=== PATIENT | female | born 1960 | race Caucasian/White ===

== ENCOUNTER 2019-10-17 19:43 | Emergency (ER) | payer OTHER, SELFPAY ==
[2019-10-17 19:51] VITALS: BP 144/74; PULSE 70; RESP 14; TEMP 36.4; O2SAT 94
--- NOTE | 2019-10-17 20:50 | ED.GENADULT ---
HPI - General Adult General Chief complaint: Upper Respiratory Infection Stated complaint: chest congestion Time Seen by Provider: 10/17/19 20:50 Source: patient and RN notes reviewed Mode of arrival: ambulatory Limitations: no limitations History of Present Illness HPI narrative: 59-year-old female presents with complains of tightness in lungs when taking a deep breath, wheezing, and dry cough for the past 5 days. No treatment. Joy says she has been housing cleaning and painting and symptoms has worsened over the last 48 hours. Constant dry cough. Rhinorrhea and nasal congestion. Denies sore throat. No high fevers, drooling, neck or throat swelling. No chest pain, or shortness of breath. Exacerbation factors consist of smoke exposure. Denies nausea, vomiting, and abdominal pain. Tolerating liquids well. Remains active. Some parts of this dictation were generated by voice recognition software and may contain typographical and/or grammatical inaccuracies. Related Data Home Medications Medication Instructions Recorded Confirmed amlodipine 10 mg PO DAILY 10/17/19 10/17/19 diclofenac sodium 75 mg PO DAILY 10/17/19 10/17/19 famotidine 20 mg PO DAILY 10/17/19 10/17/19 lisinopril-hydrochlorothiazide 1 tablet PO DAILY 10/17/19 10/17/19 omeprazole 20 mg PO DAILY 10/17/19 10/17/19 Allergies Allergy/AdvReac Type Severity Reaction Status Date / Time erythromycin base Allergy Severe NAUSEA AND Verified 03/23/18 19:28 VOMITING Quinolones Allergy Mild HIVES,SWELLING Verified 03/23/18 19:28 TO EARS WITH ITCHING Penicillins Allergy Unknown Verified 03/23/18 19:28 MOXIFLOXACIN HCL Allergy Severe HIVES Uncoded 03/23/18 19:28 Review of Systems Review of Systems: Narrative: CONSTITUTIONAL: Denies fever, chills, sweats. EYES: Denies visual changes, redness, discharge. ENT: Complains of rhinorrhea, congestion. Denies sore throat, otalgia. CARDIOVASCULAR: Denies chest pain, palpitations, edema. RESPIRATORY: Denies dyspnea. Complains of dry cough, wheezing. GASTROINTESTINAL: Denies abdominal pain, nausea, vomiting, diarrhea. GENITOURINARY: Denies dysuria, hematuria, abnormal discharge. SKIN: Denies rash or itching. MUSCULOSKELETAL: Denies acute back pain, joint pain, or myalgia. NEUROLOGIC: Denies numbness or focal weakness. PSYCHIATRIC: Denies anxiety or depression. All systems reviewed & are unremarkable except as noted in HPI and below. [facility] Past Medical History Medical History (Updated 10/18/19 @ 00:00 by Abrahan Abarca) COPD (chronic obstructive pulmonary disease) with emphysema Hypertension Surgical History Surgical History (Updated 10/17/19 @ 20:56 by ERNESTO Gonzalez) History of carpal tunnel surgery Bilateral wrist History of hysterectomy Hx of appendectomy Family History Family History (Updated 10/17/19 @ 20:57 by ERNESTO Gonzalez) Mother Hypertension Diabetes mellitus Father Diabetes mellitus Hypertension Social History Social History (Updated 10/17/19 @ 20:57 by ERNESTO Gonzalez) Smoking status: Current every day smoker Second hand tobacco smoke exposure: Yes Alcohol intake: never Substance use: never Living arrangements: with family Gender identity (if verbalized by the patient): Female Comments At time of signature, agree with nurse past medical, surgical, social, and family history. There is no relevant family history pertinent to the presenting complaint. Exam Narrative: Exam Narrative: GENERAL: This is a well-nourished, well-developed patient, in no apparent distress. Talks in full sentences and ambulates with steady gait without dyspnea. HEAD: normocephalic, atraumatic. EYES: PERRL. Sclera clear/white. Vision is grossly intact. EARS: External ears normal, auditory canals clear and without drainage, TMs normal without perforation. Hearing grossly intact. NOSE: External nose normal with no obv
== END 2019-10-17 21:04 | disposition home or self-care (01) ==
PROVIDERS: Emergency Provider Nurse Practitioner Family
DX: R09.89 Other specified symptoms and signs involving the circulatory and respiratory systems (principal); J40 Bronchitis, not specified as acute or chronic; F17.200 Nicotine dependence, unspecified, uncomplicated; J44.9 Chronic obstructive pulmonary disease, unspecified; I10 Essential (primary) hypertension
CPT/HCPCS: 99213; G0463

== ENCOUNTER 2025-07-17 10:52 | Emergency (ER) | payer OTHER, SELFPAY ==
[2025-07-17 11:00] VITALS: BP 139/60; PULSE 52; RESP 18; TEMP 36.3; O2SAT 96
--- NOTE | 2025-07-17 11:04 | ED.DENTAL ---
HPI - Dental/Oral General Chief complaint: Dental/Oral Stated complaint: Tooth Pain/Facial Swelling Time Seen by Provider: 07/17/25 11:05 Source: patient, RN notes reviewed and old records reviewed Mode of arrival: ambulatory Limitations: no limitations History of Present Illness HPI Narrative: 64 year old female presents to [facility] with complaints right upper dental pain which is radiating to her right ear that started yesterday with facial swelling to the right side starting at midnight. Patient reports she took 2 left over doses of clindamycin that she had and she also has tramadol which she has taken for the pain. Patient reports no difficulty with her breathing or with her swallowing. Patient has no swelling under the jaw pr any trismus or any Pk angina. MD Complaint: tooth pain Location: Tooth # (2) Onset (ago): day(s) (since yesterday) Duration: constant Severity scale (1-10): 5 Treatment prior to arrival: oral analgesic and other (2 left over doses of Clindamycin) Related Data Home Medications ?Medication ?Instructions ?Recorded ?Confirmed ?Last Taken ?Type amlodipine 10 mg tablet 10 mg PO DAILY 10/17/19 10/17/19 Unknown History diclofenac sodium 75 mg 75 mg PO DAILY 10/17/19 10/17/19 Unknown History tablet,delayed release omeprazole 20 mg capsule,delayed 20 mg PO DAILY 10/17/19 10/17/19 Unknown History release bupropion HCl 150 mg tablet,12 hr mg PO 07/17/25 Unknown History sustained-release gabapentin 100 mg capsule mg 07/17/25 Unknown History gabapentin 300 mg capsule mg 07/17/25 Unknown History metoprolol succinate 25 mg mg PO 07/17/25 Unknown History tablet,extended release 24 hr tramadol 50 mg tablet mg 07/17/25 Unknown History Allergies Allergy/AdvReac Type Severity Reaction Status Date / Time erythromycin base Allergy Severe NAUSEA AND Verified 07/17/25 11:04 VOMITING Quinolones Allergy Mild HIVES,SWELLING Verified 07/17/25 11:04 TO EARS WITH ITCHING Penicillins Allergy Unknown Unknown Verified 07/17/25 11:04 MOXIFLOXACIN HCL Allergy Severe HIVES Uncoded 03/23/18 19:28 Review of Systems Review of Systems: CONSTITUTIONAL: Denies fever, chills, or sweats. ENT: Denies rhinorrhea, congestion, sore throat, or otalgia. Reports dental pain to right upper posterior molar which is broken off with facial swelling to cheek with some radiation of pain to her ear with no trismus noted. CARDIOVASCULAR: Denies chest pain, palpitations, or edema. RESPIRATORY: Denies cough or dyspnea. SKIN: Denies rash or itching. MUSCULOSKELETAL: Denies myalgia. NEUROLOGIC: Denies headache All systems reviewed & are unremarkable except as noted in HPI and below PMFSH Past Medical History Medical History Anxiety and depression COPD (chronic obstructive pulmonary disease) with emphysema Hypertension Surgical History Surgical History History of repair of right rotator cuff H/O inguinal hernia repair History of total left hip arthroplasty Hx of appendectomy History of hysterectomy History of carpal tunnel surgery Bilateral wrist Family History Family History Mother Hypertension Diabetes mellitus Father Diabetes mellitus Hypertension Social History Social History Smoking status: Former smoker Second hand tobacco smoke exposure: Yes Additional smoking assessment comments: quit 5 years ago Alcohol intake: never Substance use: never Living arrangements: with family Gender identity (if verbalized by the patient): Female Comments At time of signature, agree with nursing past medical, surgical, social and family history. There is no relevant family history pertinent to the presenting complaint Exam Narrative: GENERAL: Well-appearing, well-nourished, and in some acute distress. HEAD: Normocephalic, atraumatic. EYES: PERRLA and EOMI. ENT: Nares clear, no rhinorrhea or epistaxis. Mucous membranes moist. Missing teeth, broken teeth, caries noted with swelling to right side of face with abscess noted to most posterior upper right molar which is broken off with redness swelling of gum, no trismus or any Pk angina. No swelling noted along jaw or under jaw. NECK: Supple.no lymphadenopathy CHEST: Clear to auscultation. No respiratory distress.SAO2 96% on room air HEART: Regular rate and rhythm. No murmur heard. Normal peripheral pulses. SKIN: Warm, dry, no rash. NEURO: No focal deficits. Alert and oriented x3. Course Course Level of Care: Express Care Visit Vital Signs Vital signs: Vital Signs Temperature 36.3 C L 07/17/25 11:00 Pulse Rate 52 L 07/17/25 11:00 Respiratory Rate 18 07/17/25 11:00 Blood Pressure 139/60 07/17/25 11:00 Pulse Oximetry 96 07/17/25 11:00 Oxygen Delivery Room Air 07/17/25 11:00 Temperature 36.3 C L 07/17/25 11:00 Pulse Rate 52 L 07/17/25 11:00 Respiratory Rate 18 07/17/25 11:00 Blood Pressure 139/60 07/17/25 11:00 Pulse Oximetry 96 07/17/25 11:00 Oxygen Delivery Room Air 07/17/25 11:00 reviewed MDM MDM Narrative Medical decision making narrative: 64 year old female with dental pain and facial swelling since yesterday with dental abscess noted to right upper gum where tooth is broken off at gum line. Anticipatory guidance and reasons to seek care in ED reviewed with patient with understanding voiced. Patient instructed if increased swelling of face that goes under jaw or any difficulty with breathing or swallowing go to ED immediately. Differential Diagnosis Differential Diagnosis: Differential diagnostic considerations for dental issues include gingival abscess, dental caries, toothache, dental abscess, fracture of tooth, aphthous ulcer, TMJ. Critical Care Time Critical Care Time Critical Care Time: No Discharge Plan Discharge Clinical Impression: Dental abscess, Right facial swelling Patient Disposition: Home Condition: Stable Instructions: Antibiotic Form, Dental Abscess (ED), Toothache (ED) Additional Instructions: Avoid temperature extremes May apply heat or ice to the face Gentle brushing and flossing Antibiotic as directed Tylenol for lesser pain Use ibuprofen regularly may use your Rx of Tramadol also for acute pain Follow-up with the dentist as soon as possible--see the list provided If your symptoms persist, change or worsen significantly before you can contact your personal physician then please, without delay, go to the emergency department for further evaluation. Follow-up with PCP in 7-10 days or sooner if needed Follow up with PCP soon in regards to your blood pressure which is elevated above threshold for referral. Blood pressure above 120/80 may indicate pre-hypertension. 139/60 Patient Language: Turkmen Prescriptions: New clindamycin HCl [Cleocin HCl] 300 mg capsule 300 mg PO Q8H Qty: 30 0RF chlorhexidine gluconate [Peridex] 0.12 % mouthwash 15 ml mucous membrane BID Qty: 473 0RF Rx Instructions: mouthwash No Action amlodipine 10 mg tablet 10 mg PO DAILY omeprazole 20 mg capsule,delayed release(DR/EC) 20 mg PO DAILY diclofenac sodium 75 mg tablet,delayed release (DR/EC) 75 mg PO DAILY (DME) inhalational spacing device Spacer See Rx Instructions .ROUTE .MEDSUPPLY Qty: 1 0RF Rx Instructions: As directed albuterol sulfate [ProAir HFA] 90 mcg/actuation HFA aerosol inhaler 2 puff INHALATION Q4H Qty: 18 0RF bupropion HCl 150 mg tablet sustained-release 12 hr PO tramadol 50 mg tablet gabapentin 300 mg capsule gabapentin 100 mg capsule metoprolol succinate 25 mg tablet extended release 24 hr PO Follow-up/Referrals: Key,Peyman Quesada MD [Primary Care Provider, Unknown] Stand Alone Forms: Work/School Release IP Time of Disposition: 11:19 Quality [place] Coma Scale Eyes: Open Verbal: Oriented and Alert Motor: Follows Commands Yaya Coma Total Score: 15
--- OUTSIDE RECORDS SUMMARY | 2025-07-17 13:07 | XMS_ITS | Encounter Summary ---
Author Organization [facility] Address [address] [place] [address] Phone Care Team Providers Care Lpc Name Role Phone Diego Crain MD Unavailable Ida Mejia [facility] Unavailable [phone] Peyman Mackey MD Primary Care Provider [phone] Herrera Payne MD Unavailable Rosendo Krishnamurthy MD Unavailable Reason for Visit * Reason Comments Medication Refill Encounter Details Date Type Department Care Team (Late st Contact Info) Description 10/17/2023 [facility]ill [facility] [address] [place] [address] Peyman Mackey MD [address] [address] Medication Refill Social History Tobacco Use Types Packs/Day Years Used Date Smoking Tobacco: Former Cigarettes 0.5 41.2 0 03/10/1979 - 05/14/2020 Smokeless Tobacco: Never Comments:Cigarettes..need to quit. I quit on May 2020 Alcohol Use Standard Drinks/Week Comments Not Currently 0 (1 standard drink = 0.6 oz pur e alcohol) [facility] Utilities Answer Date Recorded In the past 12 months has e electric, gas, oil, or water company threatened to shut off services in your home? No 09/27/2023 Social Connection and Isolation Panel Answer Date Recorded In a typical week, how many times do you talk on the phone with family, friends, or neighbors? More than three times a week 09/27/2023 How often do you get togethe r with friends or relatives? More than three times a week 09/27/2023 How often do you attend chur ch or muslim services? 1 to 4 times per year 09/27/2023 Do you belong to any clubs o r organizations such as mosque groups, unions, fraternal or athletic groups, or school groups? No 09/27/2023 How often do you attend meet ings of the clubs or organizations you belong to? Never 09/27/2023 Are you , , di vorced, , never , or living with a partner? 09/27/2023 AUDIT-C Answer Date Recorded Q1: How often do you have a drink containing alcohol? Never 09/27/2023 Q2: How many drinks containi ng alcohol do you have on a typical day when you are drinking? Patient does not drink Q3: How often do you have si x or more drinks on one occasion? Never 09/27/2023 Overall Financial Resource Strain (CARDIA) Answe r Date Recorded How hard is it for you to pa y for the very basics like food, housing, medical care, and heating? Not very hard 09/27/2023 PHQ-2 Answer Date Recorded Total Score - Questions 1-9 16 04/0 12/2022 [facility] - Occupational Stress Questionnaire Answer Date Recorded Do you feel stress - tense, restless, nervous, or anxious, or unable to sleep at night because your mind is troubled all the time - these days? To some extent 09/27/2023 Exercise Vital Sign Answer Date Recorde d On average, how many days pe r week do you engage in moderate to strenuous exercise (like a brisk walk)? 0 days 09/27/2023 On average, how many minutes do you engage in exercise at this level? 0 min 09/27/2023 Hunger Vital Sign Answer Date Recorded Within the past 12 months, y ou worried that your food would run out before you got the money to buy more. Never true 09/27/19 24 Within the past 12 months, t he food you bought just didn't last and you didn't have money to get more. Never true 09/27/2023 PRAPARE - Transportation Answer Date Re corded In the past 12 months, has l ack of transportation kept you from medical appointments or from getting medications? No 09/03 In the past 12 months, has l ack of transportation kept you from meetings, work, or from getting things needed for daily living? No 09/27/2023 Housing Stability Vital Sign Answer Allan e Recorded In the last 12 months, was t here a time when you were not able to pay the mortgage or rent on time? No 09/27/2023 In the last 12 months, how many places have you lived? 1 09/27/2023 In the last 12 months, was t here a time when you did not have a steady place to sleep or slept in a snf (including now)? No 09/27/2023 Education Answer Date Recorded What is the highest level of school you have completed or the highest degree you have received? Some college, no degree 08/27/2020 Sexually Active Control Partners Comments Not Currently Male Comments No Sex and Gender Information Value Date Recorded Sex Assigned at Not on file Legal Sex Female 3:29 PM PUDDLER HELPER Gender Identity Female 06/19/2023 12:12 AM PUDDLER HELPER Sexual Orientation Straight 06/19/2023 12 :12 AM PUDDLER HELPER documented as of this encounter Miscellaneous Notes * Telephone Encounter - Tari Owens RN - 10/18/2023 10:31 AM CDT Medication(s) refilled and signed per [facility] Chronic Medication Refill Standing Order for Pediatricand Adult Patients. Requested Prescriptions Pending Prescriptions Disp Refills amLODIPine (NORVASC) 10 MG Tablet [Pharmacy Med Name: amLODIPine Besylate 10 MG Oral Tablet] 90 Tablet 0 Sig: Take 1 tablet by mouth once daily Calcium-Channel Blockers Protocol Passed - 10/17/2023 11:22 AM Passed - BP on record in the past year Clinician-entered: BP Readings from Last 3 Encounters: 09/30/23 160/84 11/05/22 142/60 10/28/21 126/72 Patient-entered: No data recorded Passed - Visit with relevant provider in past 12 months or upcoming 90 days Recent Visits Date Type Provider Dept 09/30/23 Office Visit Peyman Mackey MD [facility] 11/05/22 Office Visit Peyman Mackey MD [facility] Showing recent visits within past 365 days and meeting all other requirements Future Appointments Date Type Provider Dept 01/10/24 Appointment Peyman Mackey MD [facility] Showing future appointments within next 90 days and meeting all other requirements documented in this encounter Plan of Treatment Upcoming Encounters Date Type Department Care Team (Late st Contact Info) Description 08/06/2025 1:30 PM PUDDLER HELPER [facility] [place] [address] [place] [address] Rosendo Krishnamurthy MD [address] [place] [address] 08/30/2025 1:00 PM PUDDLER HELPER Office Visit [facility] - [facility] - [place] [address] [place] [address] Peyman Mackey MD [address] [place] [address] documented as of this encounter Visit Diagnoses Not on filedocumented in this encounter Additional Health Concerns Assessment Noted Time PHQ-9 Depression Total Score: 16 023 2:01 PM CDT documented as of this encounter Care Teams Lpc Relationship Specialty Start Date End Date Peyman Mackey MD [address] [address] PCP - General Family Medicine 11/02/19 Diego Crain MD Consulting Physician Orthopaedic Sports Medicine 03/10/19 Ida Mejia PAC [address] [place] [address] Nurse Practitioner Orthopaedic Surgery 05/08/19 Herrera Payne MD [address] [address] Consulting Physician Colon and Rectal Surgery 03/24/24 Rosendo Krishnamurthy MD [address] [place] [address] Consulting Physician Pulmonary Disease 04/13/25 documented as of this encounter
--- OUTSIDE RECORDS SUMMARY | 2025-07-17 13:07 | XMS_ITS | Encounter Summary ---
Author Organization [facility] Address [address] [place] [address] Phone Care Team Providers Care Air Transportation Provider Name Role Phone Diego Crain MD Unavailable [phone] Ida Mejia [facility] Unavailable [phone] Peyman Mackey MD Primary Care Provider [phone] Herrera Payne MD Unavailable Rosendo Krishnamurthy MD Unavailable Reason for Visit * Reason Comments Medication Refill Encounter Details Date Type Department Care Team (Late st Contact Info) Description 10/09/2023 [facility]ill [facility] - [facility] [address] [place] [address] Peyman Mackey MD [address] [address] Medication Refill Social History Tobacco Use Types Packs/Day Years Used Date Smoking Tobacco: Former Cigarettes 0.5 41.2 0 03/10/1979 - 05/14/2020 Smokeless Tobacco: Never Comments:Cigarettes..need to quit. I quit on May 2020 Alcohol Use Standard Drinks/Week Comments Not Currently 0 (1 standard drink = 0.6 oz pur e alcohol) [facility] Utilities Answer Date Recorded In the past [...] often do you attend chur ch or mormonism services? 1 to 4 times per year 09/27/2023 Do you belong to any clubs o r organizations such as cheondoism groups, unions, fraternal or athletic groups, or [...] Score - Questions 1-9 16 04/0 12/2022 [facility] - Occupational Stress [...] place to sleep or slept in a intermediate (including now)? No 09/27/2023 Education Answer Date Recorded What is the highest level of school you have completed or the highest degree you have received? Some college, no degree 08/27/2020 Sexually Active Control Partners Comments Not Currently Male Comments No Sex and Gender Information Value Date Recorded Sex Assigned at Not on file Legal Sex Female 3:29 PM DIRECTOR NEWS Gender Identity Female 06/19/2023 12:12 AM DIRECTOR NEWS Sexual Orientation Straight 06/19/2023 12 :12 AM DIRECTOR NEWS documented as of this encounter Miscellaneous Notes * Telephone Encounter - Kerline Ashley RN - 10/09/2023 10:11 AM DIRECTOR NEWS Medication failed the protocol, provider to review and approve the medication order if appropriate. Requested Prescriptions Pending Prescriptions Disp Refills diclofenac (VOLTAREN) 75 MG Tablet Delayed Response [Pharmacy Med Name: Diclofenac Sodium 75 MG Oral Tablet Delayed Release] 180 Tablet 0 Sig: Take 1 tablet by mouth twice daily NSAIDs Protocol Failed - 10/09/2023 8:18 AM Failed - Normal serum creatinine in past 12 months No results found for: CREATININE Failed - AST less than 55 or ALT less than 90 in past 12 months No results found for: SGOTAST No results found for: SGPTALT Failed - HGB greater than 10 or HCT greater than 30 in past 12 months HEMOGLOBIN (HGB) Date Value Ref Range Status 09/12/2021 11.4 (L) 12.0 - 15.8 g/dL Final HEMATOCRIT (HCT) Date Value Ref Range Status 09/12/2021 37.1 36.0 - 47.0 % Final Passed - Visit with relevant provider in past 12 months or upcoming 90 days Recent Visits Date Type Provider Dept 09/30/23 Office Visit Peyman Mackey MD [facility] 11/05/22 Office Visit Peyman Mackey MD [facility] Showing recent visits within past 365 days and meeting all other requirements Future Appointments No visits were found meeting these conditions. Showing future appointments within next 90 days and meeting all other requirements Passed - No matching NSAID med order in past 45 days No matching medication orders between 08/25/2023 10:11 AM and 10/09/2023 10:11 AM buPROPion SR (WELLBUTRIN SR) 150 MG TABLET SR 12 HR [Pharmacy Med Name: buPROPion HCl ER (SR) 150 MG Oral Tablet Extended Release 12 Hour] 180 Tablet 0 Sig: Take 1 tablet by mouth twice daily Bupropion (6 Month Refill Only) Protocol Failed - 10/09/2023 8:18 AM Failed - Has an encounter in the past 6 months with a depression or anxiety visit diagnosis Passed - Visit with relevant provider in past 6 months or upcoming 90 days Recent Visits Date Type Provider Dept 09/30/23 Office Visit Peyman Mackey MD [facility] Showing recent visits within past 182 days and meeting all other requirements Future Appointments No visits were found meeting these conditions. Showing future appointments within next 90 days and meeting all other requirements Passed - Patient has established therapy with Bupropion for at least 6 months CTOR NEWS documented in this encounter Plan of Treatment Upcoming Encounters Date Type Department Care Team (Late st Contact Info) Description 08/06/2025 1:30 PM DIRECTOR NEWS Office Visit [facility] - [facility]ology & [facility] Medicine - [place] [address] [place] [phone] Rosendo Krishnamurthy MD [address] [facility] [place] [address] 08/30/2025 1:00 PM DIRECTOR NEWS Office Visit [facility] [place] [address] Peyman Mackey MD [address] [address] documented as of this encounter Visit Diagnoses Not on filedocumented in this encounter Additional Health Concerns Assessment Noted Time PHQ-9 Depression Total Score: 16 023 2:01 PM CDT documented as of this encounter Care Teams Air Transportation Provider Relationship Specialty Start Date End Date Peyman Mackey MD #[address] [address] PCP - General Family Medicine 11/02/19 Diego Crain MD Consulting Physician Orthopaedic Sports Medicine 03/10/19 Ida Mejia PAC [address] [place] [address] Nurse Practitioner Orthopaedic Surgery 05/08/19 Herrera Payne MD [address] [address] Consulting Physician Colon and Rectal Surgery 03/24/24 Rosendo Krishnamurthy MD [address] [place] [address] Consulting Physician Pulmonary Disease 04/13/25 documented as of this encounter
--- OUTSIDE RECORDS SUMMARY | 2025-07-17 13:07 | XMS_ITS | Encounter Summary ---
Author Organization [facility] Address [address] [place] [address] Phone Care Team Providers Care Review Consultant Name Role Phone Diego Crain MD Unavailable Ida Mejia [facility] Unavailable [phone] Peyman Makcey MD Primary Care Provider [phone] Herrera Payne MD Unavailable Roesndo Krishnamurthy MD Unavailable Reason for Visit * Reason Comments Medication Refill Encounter Details Date Type Department Care Team (Late st Contact Info) Description 10/22/2023 Refill [facility] [address] [place] [address] Peyman Mackey MD [address] [address] Medication Refill Social History Tobacco Use Types Packs/Day Years Used Date Smoking Tobacco: Former Cigarettes 0.5 41.2 0 03/10/1979 - 05/14/2020 Smokeless Tobacco: Never Comments:Cigarettes..need to quit. I quit on May 2020 Alcohol Use Standard Drinks/Week Comments Not Currently 0 (1 standard drink = 0.6 oz pur e alcohol) [facility] Utilities Answer Date Recorded In the [...] often do you attend chur ch or roman catholic services? 1 to 4 times per year 09/27/2023 Do you belong to any clubs o r organizations such as sikh groups, unions, fraternal or athletic groups, or [...] Score - Questions 1-9 16 04/0 12/2022 [facility] ional Health - [...] place to sleep or slept in a senior living (including now)? No 09/27/2023 Education Answer Date Recorded What is the highest level of school you have completed or the highest degree you have received? Some college, no degree 08/27/2020 Sexually Active Control Partners Comments Not Currently Male Comments No Sex and Gender Information Value Date Recorded Sex Assigned at Not on file Legal Sex Female 3:29 PM BRAKE MECHANIC Gender Identity Female 06/19/2023 12:12 AM BRAKE MECHANIC Sexual Orientation Straight 06/19/2023 12 :12 AM BRAKE MECHANIC documented as of this encounter Miscellaneous Notes * Telephone Encounter - Kerline Ashley RN - 10/24/2023 2:29 PM CDT Medication failed the protocol, provider to review and approve the medication order if appropriate. Requested Prescriptions Pending Prescriptions Disp Refills ezetimibe (ZETIA) 10 MG Tablet [Pharmacy Med Name: Ezetimibe 10 MG Oral Tablet] 90 Tablet 0 Sig: Take 1 tablet by mouth once daily Intestinal Cholesterol Absorption Inhibitors Protocol Failed - 10/22/2023 9:24 PM Failed - Lipid panel in past year No results found for: LDL, HDLCHOLESTE, CHOLESTEROL, TRIGLYCRIDES, VLDL, CHDL, HDLNON Passed - Visit with relevant provider in past year or upcoming 90 days Recent Visits Date Type Provider Dept 09/30/23 Office Visit Peyman Mackey MD [facility] 11/05/22 Office Visit Peyman Mackey MD [facility] Showing recent visits within past 365 days and meeting all other requirements Future Appointments Date Type Provider Dept 01/10/24 Appointment Peyman Mackey MD [facility] Showing future appointments within next 90 days and meeting all other requirements documented in this encounter Plan of Treatment Upcoming Encounters Date Type Department Care Team (Late st Contact Info) Description 08/06/2025 1:30 PM BRAKE MECHANIC [facility] - Pulmonology & Sleep Medicine - [place] [address] [place] [address] Rosendo Krishnamurthy MD [address] [place] [address] 08/30/2025 1:00 PM BRAKE MECHANIC Office Visit [facility] - Family Medicine - [place] [address] [place] [address] Peyman Mackey MD #[address] [address] documented as of this encounter Visit Diagnoses Not on filedocumented in this encounter Additional Health Concerns Assessment Noted Time PHQ-9 Depression Total Score: 16 023 2:01 PM CDT documented as of this encounter Care Teams Review Consultant Relationship Specialty Start Date End Date Peyman Mackey MD #[address] [address] PCP - General Family Medicine 11/02/19 Diego Crain MD Consulting Physician Orthopaedic Sports Medicine 03/10/19 Ida Mejia PAC [address] [place] [address] Nurse Practitioner Orthopaedic Surgery 05/08/19 Herrera Payne MD #[address] [address] Consulting Physician Colon and Rectal Surgery 03/24/24 Rosendo Krishnamurthy MD [address] [place] [address] Consulting Physician Pulmonary Disease 04/13/25 documented as of this encounter
--- OUTSIDE RECORDS SUMMARY | 2025-07-17 13:08 | XMS_ITS | Encounter Summary ---
Author Organization [facility] Address [address] [place] [address] Phone Care Team Providers Care Medical Physics Professor Name Role Phone Diego Crain MD Unavailable Ida Mejia [facility] Unavailable [phone] Peyman Mackey MD Primary Care Provider [phone] Herrera Payne MD Unavailable Rosendo Krishnamurthy MD Unavailable Reason for Visit * Reason Comments Medication Refill Encounter Details Date Type Department Care Team (Late st Contact Info) Description 06/27/2023 Refill [facility] [address] [place] [address] Peyman Mackey MD [address] [address] Medication Refill Social History Tobacco Use Types Packs/Day Years Used Date Smoking Tobacco: Former Cigarettes 41.1 0 03/10/1979 - 05/2020 Smokeless Tobacco: Never Alcohol Use Standard Drinks/Week Comments Not Currently 0 (1 standard drink = 0.6 oz pur e alcohol) PHQ-2 Answer Date Recorded Total Score - Questions 1-9 16 043 Education Answer Date Recorded What is the highest level of school you have completed or the highest degree you have received? Some college, no degree 08/27/2020 Sexually Active Control Partners Comments Not Currently Comments No Sex and Gender Information Value Date Recorded Sex Assigned at Not on file Legal Sex Female 3:29 PM FIRER LOCOMOTIVE Gender Identity Female 06/19/2023 12:12 AM FIRER LOCOMOTIVE Sexual Orientation Straight 06/19/2023 12 :12 AM FIRER LOCOMOTIVE documented as of this encounter Miscellaneous Notes * Telephone Encounter - Tari Owens RN - 06/28/2023 11:22 AM CST PDMP 05/27/23 Medication failed the protocol, provider to review and approve the medication order if appropriate. Requested Prescriptions Pending Prescriptions Disp Refills amLODIPine (NORVASC) 10 MG Tablet [Pharmacy Med Name: amLODIPine Besylate 10 MG Oral Tablet] 90 Tablet 0 Sig: Take 1 tablet by mouth once daily Calcium-Channel Blockers Protocol Passed - 06/27/2023 11:03 AM Passed - BP on record in the past year Clinician-entered: BP Readings from Last 3 Encounters: 11/05/22 142/60 10/28/21 126/72 07/29/21 128/68 Patient-entered: No data recorded Passed - Visit with relevant provider in past 12 months or upcoming 90 days Recent Visits Date Type Provider Dept 11/05/22 Office Visit Peyman Mackey MD [facility] 08/19/22 Telemedicine Peyman Mackey MD [facility] 07/15/22 Telemedicine Peyman Mackey MD [facility] Showing recent visits within past 365 days and meeting all other requirements Future Appointments Date Type Provider Dept 07/13/23 Appointment Peyman Mackey MD [facility] Showing future appointments within next 90 days and meeting all other requirements ezetimibe (ZETIA) 10 MG Tablet [Pharmacy Med Name: Ezetimibe 10 MG Oral Tablet] 90 Tablet 0 Sig: Take 1 tablet by mouth once daily Intestinal Cholesterol Absorption Inhibitors Protocol Failed - 06/27/2023 11:03 AM Failed - Lipid panel in past year No results found for: LDL, HDLCHOLESTE, CHOLESTEROL, TRIGLYCRIDES, VLDL, CHDL, HDLNON Passed - Visit with relevant provider in past year or upcoming 90 days Recent Visits Date Type Provider Dept 11/05/22 Office Visit Peyman Mackey MD [facility] 08/19/22 Telemedicine Peyman Mackey MD [facility] 07/15/22 Telemedicine Peyman Mackey MD [facility] Showing recent visits within past 365 days and meeting all other requirements Future Appointments Date Type Provider Dept 07/13/23 Appointment Peyman Mackey MD [facility] Showing future appointments within next 90 days and meeting all other requirements buPROPion SR (WELLBUTRIN SR) 150 MG TABLET SR 12 HR [Pharmacy Med Name: buPROPion HCl ER (SR) 150 MG Oral Tablet Extended Release 12 Hour] 180 Tablet 0 Sig: Take 1 tablet by mouth twice daily Bupropion (6 Month Refill Only) Protocol Failed - 06/27/2023 11:03 AM Failed - Has an encounter in the past 6 months with a depression or anxiety visit diagnosis Passed - Visit with relevant provider in past 6 months or upcoming 90 days Recent Visits No visits were found meeting these conditions. Showing recent visits within past 182 days and meeting all other requirements Future Appointments Date Type Provider Dept 07/13/23 Appointment Peyman Mackey MD [facility] Showing future appointments within next 90 days and meeting all other requirements Passed - Patient has established therapy with Bupropion for at least 6 months gabapentin (NEURONTIN) 100 MG Capsule [Pharmacy Med Name: Gabapentin 100 MG Oral Capsule] 60 Capsule 0 Sig: TAKE 1 CAPSULE BY MOUTH TWICE DAILY NEEDED Not Delegated - Anticonvulsants Excluding Benzodiazepines Protocol Failed - 06/27/2023 11:03 AM Failed - This refill cannot be delegated Passed - Visit with relevant provider in past 12 months or upcoming 90 days Recent Visits Date Type Provider Dept 11/05/22 Office Visit Peyman Mackey MD [facility] 08/19/22 Telemedicine Peyman Mackey MD [facility] 07/15/22 Telemedicine Peyman Mackey MD [facility] Showing recent visits within past 365 days and meeting all other requirements Future Appointments Date Type Provider Dept 07/13/23 Appointment Peyman Mackey MD [facility] Show[facility] future appointments within next 90 days and meeting all other requirements traMADol (ULTRAM) 50 MG Tablet [Pharmacy Med Name: traMADol HCl 50 MG Oral Tablet] 60 Tablet 0 Sig: TAKE 1 TABLET BY MOUTH TWICE DAILY NEEDED FOR MODERATE OR MORE SEVERE PAIN Not Delegated - Opioid Agonists Protocol Failed - 06/27/2023 11:03 AM Failed - This refill cannot be delegated Passed - Visit with relevant provider in past 12 months or upcoming 90 days Recent Visits Date Type Provider Dept 11/05/22 Office Visit Peyman Mackey MD [facility] 08/19/22 Telemedicine Peyman Mackey MD [facility] 07/15/22 Telemedicine Peyman Mackey MD [facility] Showing recent visits within past 365 days and meeting all other requirements Future Appointments Date Type Provider Dept 07/13/23 Appointment Peyman Mackey MD [facility] Showing future appointments within next 90 days and meeting all other requirements R LOCOMOTIVE documented in this encounter Plan of Treatment Upcoming Encounters Date Type Department Care Team (Late st Contact Info) Description 08/06/2025 1:30 PM FIRER LOCOMOTIVE Office Visit [facility] - Pulmonology & Sleep Medicine [facility] [address] [place] [address] Rosendo Krishnamurthy MD [address] [place] [address] 08/30/2025 1:00 PM FIRER LOCOMOTIVE Office Visit [facility] - Family Medicine [facility] #[address] [place] [address] Peyman Mackey MD [address] [address] documented as of this encounter Visit Diagnoses Diagnosis Chronic pain syndrome documented in this encounter Additional Health Concerns Assessment Noted Time PHQ-9 Depression Total Score: 16 023 2:01 PM CDT documented as of this encounter Care Teams Medical Physics Professor Relationship Specialty Start Date End Date Peyman Mackey MD #2 [facility] [address] [place] [address] PCP - General Family Medicine 11/02/19 Diego Crain MD Consulting Physician Orthopaedic Sports Medicine 03/10/19 Ida Mejia PAC [address] [place] [phone] Nurse Practitioner Orthopaedic Surgery 05/08/19 Herrera Payne MD #2 [facility] [address] [place] [address] Consulting Physician Colon and Rectal Surgery 03/24/24 Rosendo Krishnamurthy MD #[address] [place] [phone] Consulting Physician Pulmonary Disease 04/13/25 documented as of this encounter
--- OUTSIDE RECORDS SUMMARY | 2025-07-17 13:08 | XMS_ITS | Clinical Summary ---
Author Organization [facility] Address [address] [place] [address] Phone Care Team Providers Care String Studies Director Name Role Phone Diego Crain MD Unavailable [phone] Ida Mejia PAC Unavailable Peyman Mackey MD Primary Care Provider [phone] Herrera Payne MD Unavailable Rosendo Krishnamurthy MD Unavailable Allergies Active Allergy Reactions Criticality Noted Date Comments Erythromycin Base Unknown 03/10/2019 Meloxicam Hives 03/10/2019 Moxifloxacin Hives 03/10/2019 Penicillins Hives 03/10/2019 Sucralfate Nausea 03/10/2019 Medications albuterol 108 (90 Base) MCG/ACT Aerosol SolutionIndicati ons:COPD with acute exacerbation take 2 Puffs by inhalation every 4 hours as needed for Wheezing. 18 g 1 10/07/19 22 Active Acetaminophen (TYLENOL EXTRA STRENGTH PO) Take by mouth. Active ferrous sulfate 325 (65 Fe) MG Tablet Take 1 Tablet by mouth 2 times daily. 180 Tablet 1 09/28/19 25 Active metoprolol Succinate (TOPROL-XL) 25 MG TABLET SR 24 HR Take 1 Tablet by mouth daily. 90 Tablet 3 04/26/20 Active gabapentin (NEURONTIN) 300 MG Capsule Take 1 Capsule by mouth nightly. 04/26/20 Active gabapentin (NEURONTIN) 100 MG Capsule Take 1 Capsule by mouth every morning. 90 Capsule 3 04/26/20 Active omeprazole (PriLOSEC) 40 MG CAPSULE DELAYED RELEASEIndicatio ns:Gastroesophag eal reflux disease without esophagitis Take 1 capsule by mouth once daily 90 Capsule 1 06/11/20 25 Active traMADol (ULTRAM) 50 MG TabletIndication s:Chronic pain syndrome TAKE 1 TABLET BY MOUTH EVERY 8 HOURS NEEDED FOR MODERATE TO SEVERE PAIN 90 Tablet 06/18/20 Active amLODIPine (NORVASC) 10 MG Tablet Take 1 tablet by mouth once daily 90 Tablet 2 06/25/20 25 Active diclofenac (VOLTAREN) 75 MG Tablet Delayed Response Take 1 tablet by mouth twice daily 180 Tablet 2 06/25/20 Active buPROPion SR (WELLBUTRIN SR) 150 MG TABLET SR 12 HR Take 1 tablet by mouth twice daily 180 Tablet 2 06/25/20 25 Active diclofenac (VOLTAREN) 75 MG Tablet Delayed Response Take 1 tablet by mouth twice daily 180 Tablet 03/25/20 25 025 Discontinued buPROPion SR (WELLBUTRIN SR) 150 MG TABLET SR 12 HR Take 1 tablet by mouth twice daily 180 Tablet 03/25/20 25 025 Discontinued amLODIPine (NORVASC) 10 MG Tablet Take 1 tablet by mouth once daily 90 Tablet 03/29/20 25 025 Discontinued traMADol (ULTRAM) 50 MG TabletIndication s:Chronic pain syndrome TAKE 1 TABLET BY MOUTH EVERY 8 HOURS NEEDED FOR MODERATE TO SEVERE PAIN 90 Tablet 05/19/20 25 025 Discontinued Active Problems Problem Noted Date Diagnosed Date Therapeutic drug monitoring 04/26/2025 Primary hypertension 04/26/2025 Pain of right hip 04/26/2025 Pulmonary hypertension 04/13/2025 B12 deficiency 04/28/2024 Personal history of tobacco use, presenting hazards to health 02/17/2024 Lung nodule seen on imaging study 02/17/2024 Iron deficiency anemia 02/17/2024 Obesity (BMI 30-39.9) 02/17/2024 History of scoliosis 02/17/2024 Positive colorectal cancer screening using Colog uard test 02/10/[address] 09/30/2023 Neuropathy 09/30/2023 Postmenopausal 09/30/2023 Lightheadedness 11/05/2022 Right leg paresthesias 11/05/2022 Noncompliance 11/05/2022 Sore throat 08/19/2022 Tooth infection 07/15/2022 Depression 10/28/2021 Liver lesion 10/28/2021 Dysphagia 10/28/2021 Anemia, normocytic normochromic 07/29/2021 Morbid obesity 07/29/2021 Chronic pain syndrome 07/29/2021 Vitamin D deficiency 04/11/2021 Dysphagia lusoria 04/14/2020 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 Abnormal CXR 03/10/2020 Lung nodule 03/10/2020 Bronchitis 10/30/2019 Tobacco abuse 10/30/2019 Chronic joint pain 10/30/2019 Obesity 03/10/2019 Hypertension, essential 03/10/2019 Gastroesophageal reflux disease 03/10/2019 Chronic obstructive lung disease 03/10/2019 Arthritis 03/10/2019 Anxiety 03/10/2019 Retinal disorder 03/10/2019 Nocturnal leg cramps 03/10/2019 Hyperlipidemia Encounters Date Type Department Care Team Description 07/16/2025 [facility] [address] [place] [address] Rosendo Krishnamurthy MD ADULT TRANS THORACIC ECHO 2D COMPLETE 07/13/2025 12:52 PM GRAIN ELEVATOR OPERATOR - 07/13/2025 11:59 PM GRAIN ELEVATOR OPERATOR [facility] [address] [place] [address] Rosendo Krishnamurthy MD Discharge Disposition: Discharged to home or Selfcare 07/13/2025 Travel 07/03/2025 [facility]phone [facility] [address], [place] [address] [id number] Yoly Concepcion, PT Appointment (Same-day cancel) 07/01/2025 Refill [facility] - [facility] - [place] [address] [place] [address] Peyman Mackey MD Medication Refill 06/26/2025 [facility]phone [facility] [address], [place] [address] [address] Yoly Concepcion, PT Appointment (Same-day cancel) 06/23/20[facility] [place] [address] [place] [address] Peyman Mackey MD Medication Refill 06/22/2025 [facility]phone [facility] [address], [place] [address] [address] Yoly Concepcion, PT Appointment (Same-day cancel) 06/19/2025 [facility]phone [facility] [address], [place] [address] [address] Yoly Concepcion, PT Appointment (Same-day cancel) 06/16/2025 [facility] [place] [address] [place] [address] Peyman Mackey MD Medication Refill 06/12/2025 2:45 PM GRAIN ELEVATOR OPERATOR Physical Therapy [facility] [address], [place] [address] [address] Rachell Gray MD [place]ch[place], Kelsey M, PT Low back pain, unspecified back pain laterality, unspecified chronicity, unspecified whether sciatica present (Primary Dx); Decreased ROM of trunk and back; Weakness of both hips; Quadricep tightness; Bilateral foot pain Discharge Disposition: Discharged to home or Selfcare 06/11/2025 Travel 06/10/2025 [facility] [place] [address] [place] [address] Peyman Mackey MD Medication Refill 05/17/2025 [facility] [place] [address] [place] [address] Peyman Mackey MD Medication Refill 05/17/2025 Telephone [facility] Rehab at [address], [place] [address] [address] Yoly Concepcion M, PT Appointment (Same-day cancel) 05/16/2025 Travel 04/29/2025 Results Follow-Up [facility] [address] [place] [address] Peyman Mackey MD XR HIP 2 VIEWS BILATERAL WITH AP PELVIS 04/27/2025 11:49 AM CDT - 04/27/2025 11:59 PM CDT [facility] 1 [place] [address] Peyman Mackey MD Discharge Disposition: Discharged to home or Selfcare 04/27/2025 11:20 AM CDT - 04/27/2025 11:48 AM CDT Hospital Encounter [facility] Respiratory Therapy 1 [place] [address] Rosendo Krishnamurthy MD Discharge Disposition: Discharged to home or Selfcare 04/26/2025 2:00 PM CDT Office Visit [facility] [address] [place] [address] Peyman Mackey MD Hypertension, essential (Primary Dx); Encounter for screening mammogram for breast cancer; Therapeutic drug monitoring; Pain of right hip; Primary hypertension; Hyperglycemia; Vitamin D deficiency; B12 deficiency; Hyperlipidemia, unspecified hyperlipidemia type; Anemia, normocytic normochromic Discharge Disposition: Discharged to home or Selfcare 04/26/2025 Travel 04/19/2025 8:45 AM CDT Physical Therapy [facility] Rehab at [facility] [address], [place] [address] [address] Provider, Not On File Rachell Gray MD Critchfield, Kelsey M, PT Low back pain, unspecified back pain laterality, unspecified chronicity, unspecified whether sciatica present (Primary Dx); Decreased ROM of trunk and back; Weakness of both hips; Quadricep tightness; Bilateral foot pain Discharge Disposition: Discharged to home or Selfcare 04/19/2025 Plan of Care Documentation [facility] Rehab at [facility] [address], [place] [address] [address] 04/19/2025 Travel from Last 3 Months Immunizations Immunization Administration Dates Next Due Influenza Vaccine,unspecified Formulation 2015 Family History Medical History Relation Name Comments Congestive Heart Failure Father Bill Diabetes Father Bill Controlled by p ills Hypertension Father Bill Breast Cancer Maternal Aunt Tiffany Cancer Maternal Aunt Tiffany Breast Diabetes Maternal Grandfather Aroldo Control led by pills Congestive Heart Failure Maternal Grandmother Anna Hypertension Maternal Grandmother Anna Hers wa s low pressure Rheumatoid Arthritis Maternal Grandmother Anna Cancer Maternal Uncle Royal Rectal Congestive Heart Failure Mother Maira Diabetes Mother Maira Controlled by p ills Hypertension Mother Maira Rheumatoid Arthritis Mother Maira Diabetes Paternal Grandmother Ehrhardt Control led by diet Relation Name Status Comments Father Bill Maternal Aunt Tiffany Maternal Grandfather Aroldo Maternal Grandmother Anna Maternal Uncle Royal Mother Maira Paternal Grandmother Florinda Social History Tobacco Use Types Packs/Day Years Used Date Smoking Tobacco: Former Cigarettes 0.5 41.2 0 03/10/1979 - 05/14/2020 Smokeless Tobacco: Never Tobacco Cessation:Counseling Given: Yes Comments:Cigarettes..need to quit. I quit on May 2020 Alcohol Use Standard Drinks/Week Comments Not Currently 0 (1 standard drink = 0.6 oz pur e alcohol) [facility] Utilities Answer Date Recorded In the past 12 months has e [employer], gas, oil, or water company threatened to [...] often do you attend chur ch or hindu services? 1 to 4 times per year 09/27/2023 Do you belong to any clubs o r organizations such as protestant groups, unions, fraternal or athletic groups, or [...] Date Recorded Total Score - Questions 1-9 0 09/2 11/[address]24 [facility] - Occupational Stress Questionnaire Answer Date Recorded [...] on file Legal Sex Female 3:29 PM GRAIN ELEVATOR OPERATOR Gender Identity Female 06/19/2023 12:12 AM GRAIN ELEVATOR OPERATOR Sexual Orientation Straight 06/19/2023 12 :12 AM GRAIN ELEVATOR OPERATOR Last Filed Vital Signs Vital Sign Reading Time Taken Comments Blood Pressure 130/90 04/26/2025 1:42 PM CDT Pulse 65 04/26/2025 1:42 PM CDT Temperature 36.2 C (97.1 F) 04/26/2025 1:42 PM CDT Respiratory Rate 20 04/13/2025 11:06 AM CDT Oxygen Saturation 95% 04/26/2025 1:42 PM CDT Inhaled Oxygen Concentration - - Weight 97.5 kg (215 lb) 04/26/2025 1:42 PM CDT Height 162.6 cm (5' 4) 04/26/2025 1:42 PM CDT Body Mass Index 36.9 04/26/2025 1:42 PM CDT Plan of Treatment Upcoming Encounters Date Type Department Care Team (Late st Contact Info) Description 08/06/2025 1:30 PM GRAIN ELEVATOR OPERATOR Office Visit [facility] - Pulmonology & Sleep Medicine - [place] [address] [place] [address] Rosendo Krishnamurthy MD [address] [place] [address] 08/30/2025 1:00 PM GRAIN ELEVATOR OPERATOR Office Visit [facility] - Family Medicine - [place] [address] [place] [address] Peyman Mackey MD [address] [address] Health Maintenance Due Date Last Done Comments Hepatitis C Virus (HCV) Screening 1960 TdaP Immunization 1960 Pneumococcal Immunization (50+ years) (1 of 2 - PCV) 1980 Immunochemical Fecal Occult Blood 2006 Respiratory Syncytial Virus (RSV) Immunization (Adult) (1 - Risk 50-74 years 1-dose series) 2011 Zoster Immunization (1 of 2) 2011 Colonoscopy 04/20/2022 04/20/2012, 04/20/2012 Mammogram 01/19/2025 01/20/2024, 04/11/2021 Influenza Immunization (#1) 2025 06/15/2016 SARS-COV-2 Immunization ( season) 2025 Lung Cancer Screening 01/30/2026 01/30/2025 , 01/20/2024, 03/01/2023, Additional history exists Cologuard 02/05/2027 02/06/2024 Colorectal Cancer Screening 02/05/2027 Hepatitis B Immunization Aged Out No longer eligible based on patient's age to complete this topic Human Papillomavirus (HPV) Immunization (No Doses Required) Completed Meningococcal Immunization (ACWY) Aged Out No longer eligible based on patient's age to complete this topic Rotavirus Immunization Aged Out No lo nger eligible based on patient's age to complete this topic Procedures Procedure Name Priority Date/Time Associated Diagnosis Comments ADULT TRANS THORACIC ECHO 2D COMPLETE Routine 07/13/2025 1:51 PM GRAIN ELEVATOR OPERATOR Pulmonary hypertension XR HIP 2 VIEWS BILATERAL WITH AP PELVIS Routine 04/27/2025 12:05 PM CDT Pain of right hip COMPLETE PFT W + W/O BRONCHODILATOR Routine 04/27/2025 11:35 AM CDT Other emphysema (HCC) URINE DRUG SCREEN Routine 04/26/[address] CHEST SCREENING WO Routine 01/30/2025 6:10 PM CDT Personal history of tobacco use, presenting hazards to health COLOGUARD 02/06/2024 12:00 AM CDT DEL SCREENING BILATERAL DIGITAL W CAD W FLORINDA Routine 01/20/2024 12:06 PM CDT Encounter for screening mammogram for breast cancer HM COLONOSCOPY Routine 04/20/2012 from Last 3 Months or Most Recently Relevant to Health Maintenance Results * ADULT TRANS THORACIC ECHO 2D COMPLETE (07/13/2025 1:51 PM GRAIN ELEVATOR OPERATOR) LV EF(estimated)% 63 RESULTING AGENCY Anatomical Region Laterality Modality CARDIO N/A Ultrasound Narrative 07/13/2025 4:10 PM GRAIN ELEVATOR OPERATOR Transthoracic Echocardiography Report (TTE) Patient name KATIE Manjarrez Nayely 1960 Patient ID (UPI) [id number] Indications: Pulmonary hypertension. Study Date07/13/2025 Technical quality: Adequate Type of Study: TTE procedure: Adult Trans Thoracic Echo 2D Complete. Priority:RoutineHR: 58 bpmBP: 132/84 mmHg Conclusions Summary -Normal right ventricular cavity size and normal systolic function. - Normal LV size, diastolic and systolic function. LVEF estimated 60 to 65%. -No hemodynamically significant valvular abnormalities. Findings Mitral Valve The mitral valve is normal. No evidence of mitral stenosis. No significant mitral regurgitation. Aortic Valve The aortic valve is trileaflet with normal leaflet excursion. There is no evidence of aortic valve stenosis. There is no significant aortic valve insufficiency. Tricuspid Valve The tricuspid valve is normal. There is no evidence of tricuspid stenosis. There is no significant tricuspid regurgitation. There is no evidence of pulmonary hypertension. Pulmonic Valve Not well visualized, no evidence by Doppler interrogation for significant stenosis or regurgitation. Left Atrium The left atrium size is normal. Left Ventricle - Normal LV size, diastolic and systolic function. LVEF estimated 60 to 65%. Right Atrium The right atrium size is normal. Right Ventricle Normal right ventricular cavity size and normal systolic function. Pericardial Effusion The pericardium is normal. There is no pericardial effusion visualized. Miscellaneous Aortic root and proximal ascending aorta are normal in size. Atrial septum appears intact. IVC is normal in size and respiratory response. Aortic arch appears normal. Structures Left Ventricle Global Longitudinal Strain:-17.6 Demographics Age 64 Gender Female Race Height 64.02 in. Weight 215 lbs. BMI (BSA) 36.89 kg/m^2 (2.02 m^2) Associate Buyer Lester Browning Interpreting Patrick NUGENT Physician Jack Physician Procedure Note Jack Nguyen MD - 07/13/2025 Transthoracic Echocardiography Report (TTE) Patient name KATIE BUSTOS Loki Adler 1960 Patient ID ([facility]) [id number] Indications: Pulmonary hypertension. Study Date07/13/2025 Technical quality: Adequate Type of Study: TTE procedure: Adult Trans Thoracic Echo 2D Complete. Priority:RoutineHR: 58 bpmBP: 132/84 mmHg Conclusions Summary -Normal right ventricular cavity size and normal systolic function. - Normal LV size, diastolic and systolic function. LVEF estimated 60 to 65%. -No hemodynamically significant valvular abnormalities. Findings Mitral Valve The mitral valve is normal. No evidence of mitral stenosis. No significant mitral regurgitation. Aortic Valve The aortic valve is trileaflet with normal leaflet excursion. There is no evidence of aortic valve stenosis. There is no significant aortic valve insufficiency. Tricuspid Valve The tricuspid valve is normal. There is no evidence of tricuspid stenosis. There is no significant tricuspid regurgitation. There is no evidence of pulmonary hypertension. Pulmonic Valve Not well visualized, no evidence by Doppler interrogation for significant stenosis or regurgitation. Left Atrium The left atrium size is normal. Left Ventricle - Normal LV size, diastolic and systolic function. LVEF estimated 60 to 65%. Right Atrium The right atrium size is normal. Right Ventricle Normal right ventricular cavity size and normal systolic function. Pericardial Effusion The pericardium is normal. There is no pericardial effusion visualized. Miscellaneous Aortic root and proximal ascending aorta are normal in size. Atrial septum appears intact. IVC is normal in size and respiratory response. Aortic arch appears normal. Structures Left Ventricle Global Longitudinal Strain:-17.6 Demographics Age 64 Gender Female Race Height 64.02 in. Weight 215 lbs. BMI (BSA) 36.89 kg/m^2 (2.02 m^2) Associate Buyer Lester Browning Interpreting Patrick Santiago Physician Rosendo Krishnamurthy MD IMG ECHO ORDERABLES Edited Resul t - Final * XR HIP 2 VIEWS BILATERAL WITH AP PELVIS (04/27/2025 12:05 PM CDT) Anatomical Region Laterality Modality LOWER EXTREMITY, hip, Pelvis Bilateral Dig ital Radiography 04/27/2025 12:0 5 PM CDT Impressions 04/27/2025 2:15 PM CDT Findings/Impression: Decreased osseous mineralization which decreases sensitivity for nondisplaced fractures. No acute displaced fracture. No dislocation. No destructive osseous lesion. Changes of the lumbar spine, sacroiliac joints, and pubic symphysis. Left hip arthroplasty is in good position without complication. Grade 3 right hip osteoarthritis. Narrative 04/27/2025 2:15 PM CDT Dictating physician: David Peguero DO Exam: XR HIP 2 VIEWS BILATERAL WITH AP PELVIS Date: 04/27/2025 12:05 PM History: Hip pain Comparison: None. Procedure Note Abram Peguero DO - 04/27/2025 Dictating physician: David Peguero DO Exam: XR HIP 2 VIEWS BILATERAL WITH AP PELVIS Date: 04/27/2025 12:05 PM History: Hip pain Comparison: None. Findings/Impression: Decreased osseous mineralization which decreases sensitivity fornondisplaced fractures. No acute displaced fracture. No dislocation. Nodestructive osseous lesion. Changes of the lumbar spine, sacroiliacjoints, and pubic symphysis. Left hip arthroplasty is in good positionwithout complication. Grade 3 right hip osteoarthritis. Peyman Mackey MD IMG DIAGNOSTIC ORDERABLES Final Result * URINE DRUG SCREEN (04/26/2025) Urine 04/26/2025 Peyman Mackey MD URINE ORDERABLES Final Re sult * CT CHEST SCREENING WO (01/30/2025 6:10 PM CDT) Anatomical Region Laterality Modality Chest N/A Computed Tomogra phy 02/09/2025 7:00 AM CDT Impressions 02/09/2025 7:02 AM CDT IMPRESSION: 1. Redemonstration of a couple of pulmonary nodules in the left lung measuring up to 0.6 cm, which are overall grossly unchanged in comparison to the prior study. No definite evidence of a new suspicious pulmonary nodule. 2. Minimal emphysematous changes of lungs with scattered mild subsegmental atelectasis and scarring. 3. Mosaic attenuation of the bilateral lungs, which is likely related to air trapping/reactive small airways disease. 4. Evidence of prior granulomatous disease. Lung-RADS category 2: Benign appearance or behavior. Recommendation: Low dose Screening CT of chest in 12 months. Narrative 02/09/2025 7:02 AM CDT EXAM DESCRIPTION: CT CHEST SCREENING WO REASON FOR STUDY: Screening CT of the chest in a former smoker with a 45 pack year smoking history. Additional history: History of pulmonary nodule. History of cervical cancer 30 years ago.. TECHNIQUE: Low dose CT scan of the chest was performed without intravenous contrast using helical scanning technique. The exam extends from the lung apices through the lung bases. Automatic exposure control was used as a dose optimization technique. NOTE: This study was performed for the specific purposes of lung cancer screening and is not an alternative to diagnostic chest CT. RADIATION DOSE: CT dose index volume (CTDIvol) = 3.46 mGy COMPARISON: 01/20/2024 FINDINGS: SMOKING RELATED LUNG DISEASE: There are minimal emphysematous changes of lungs with scattered mild subsegmental atelectasis and scarring. There is mosaic attenuation of the bilateral lungs, which is likely related to air trapping/reactive small airways disease. There is no definite evidence of a pneumothorax. The central airways are grossly patent. There is no definite evidence of focal consolidation or pleural effusion. There is calcified granuloma in the right lower lobe. LUNG NODULES: There is a stable 0.4 cm pulmonary nodule in the posterior left upper lobe abutting the left major fissure (axial image 59). There is a stable subpleural 0.6 cm pulmonary nodule in the lateral left lower lobe (axial image 147). CORONARY ARTERY CALCIFICATION: Present. OTHER: The heart size is upper limits of normal. There is no definite evidence of pericardial effusion. There are atherosclerotic changes of the aorta and coronary vessels. There is no definite unenhanced CT evidence of mediastinal, hilar, or axillary lymphadenopathy. There are scattered subcentimeter mediastinal lymph nodes noted with the largest measuring 0.5 cm in the paratracheal region (axial image 62). Scattered calcified mediastinal and right hilar lymph nodes are noted. The right adrenal gland is grossly unremarkable. There is a left adrenal nodule measuring 1.8 cm, which demonstrates attenuation characteristics compatible with a benign adrenal adenoma, and therefore follow-up imaging is recommended. There is mild osteopenia. There is dextroscoliotic curvature of the spine with degenerative changes. THIS IS AN ELECTRONICALLY VERIFIED FINAL REPORT 02/09/2025 7:00 AM - Electronically signed by Maribel Aguilar D.O. PS: PS Report ID: [id number] Reading Location: [id number] Procedure Note Maribel Aguilar DO - 02/09/2025 EXAM DESCRIPTION: CT CHEST SCREENING WO REASON FOR STUDY: Screening CT of the chest in a former smoker with a 45 pack year smoking history. Additional history: History of pulmonary nodule. History of cervical cancer 30 years ago.. TECHNIQUE: Low dose CT scan of the chest was performed without intravenous contrast using helical scanning technique. The exam extends from the lung apices through the lung bases. Automatic exposure control was used as a dose optimization technique. NOTE: This study was performed for the specific purposes of lung cancer screening and is not an alternative to diagnostic chest CT. RADIATION DOSE: CT dose index volume (CTDIvol) = 3.46 mGy COMPARISON: 01/20/2024 FINDINGS: SMOKING RELATED LUNG DISEASE: There are minimal emphysematous changes of lungs with scattered mild subsegmental atelectasis and scarring. There is mosaic attenuation of the bilateral lungs, which is likely related to air trapping/reactive small airways disease. There is no definite evidence of a pneumothorax. The central airways are grossly patent. There is no definite evidence of focal consolidation or pleural effusion. There is calcified granuloma in the right lower lobe. LUNG NODULES: There is a stable 0.4 cm pulmonary nodule in the posterior left upper lobe abutting the left major fissure (axial image 59). There is a stable subpleural 0.6 cm pulmonary nodule in the lateral left lower lobe (axial image 147). CORONARY ARTERY CALCIFICATION: Present. OTHER: The heart size is upper limits of normal. There is no definite evidence of pericardial effusion. There are atherosclerotic changes of the aorta and coronary vessels. There is no definite unenhanced CT evidence of mediastinal, hilar, or axillary lymphadenopathy. There are scattered subcentimeter mediastinal lymph nodes noted with the largest measuring 0.5 cm in the paratracheal region (axial image 62). Scattered calcified mediastinal and right hilar lymph nodes are noted. The right adrenal gland is grossly unremarkable. There is a left adrenal nodule measuring 1.8 cm, which demonstrates attenuation characteristics compatible with a benign adrenal adenoma, and therefore follow-up imaging is recommended. There is mild osteopenia. There is dextroscoliotic curvature of the spine with degenerative changes. THIS IS AN ELECTRONICALLY VERIFIED FINAL REPORT 02/09/2025 7:00 AM - Electronically signed by Maribel Aguilar D.O. PS: PS Report ID: [id number] Reading Location: [id number] IMPRESSION: 1. Redemonstration of a couple of pulmonary nodules in the left lung measuring up to 0.6 cm, which are overall grossly unchanged in comparison to the prior study. No definite evidence of a new suspicious pulmonary nodule. 2. Minimal emphysematous changes of lungs with scattered mild subsegmental atelectasis and scarring. 3. Mosaic attenuation of the bilateral lungs, which is likely related to air trapping/reactive small airways disease. 4. Evidence of prior granulomatous disease. Lung-RADS category 2: Benign appearance or behavior. Recommendation: Low dose Screening CT of chest in 12 months. Pemyan Mackey MD IMG CT ORDERABLES Final R esult * COLOGUARD (02/06/2024 12:00 AM CDT) 02/06/2024 Provider Scan BODY FLUIDS & STOOLS ORDERABLES Final Result SCAN * DEL SCREENING BILATERAL DIGITAL W CAD W FLORINDA (01/20/2024 12:06 PM CDT) Anatomical Region Laterality Modality breast Bilateral Mammography 01/20/2024 12:5 3 PM CDT Narrative 01/24/2024 7:35 AM CDT - DEL SCREENING BILATERAL DIGITAL W CAD W FLORINDA BILATERAL DIGITAL SCREENING MAMMOGRAM 3D/2D WITH CAD WITH MEDIOLATERAL OBLIQUE CRANIOCAUDAL: 01/20/2024 The study was acquired using digital technology and interpreted from soft copy. Current study was also evaluated with ICAD version 7.2. 2D digital mammographic views, as well as 3D digital tomosynthesis were performed in the CC and MLO projections. CLINICAL: Routine screening. Patient has no complaints. No personal history of cancer. Maternal aunt had breast cancer. COMPARISONS: Comparison is made to exams dated: 04/11/2021 [facility], 06/08/2014, 05/25/2013 [facility], and 05/16/2021 [facility]. BREAST TISSUE:There are scattered fibroglandular densities in both breasts. FINDINGS: No significant masses, calcifications, or other findings are seen in either breast. There has been no significant interval change. IMPRESSION: BI-RAD 1 NEGATIVE There is no mammographic evidence of malignancy. A 1 year screening mammogram is recommended. A letter will be sent to the patient with these results. The patient will be entered into a reminder system with a target due date of 1 year for her next screening exam. Electronically signed by: Neida wilcox/charley:01/23/2024 11:43:58 Slot Machine Department Floorperson(s): RT Lynette(R)(M), [facility] letter sent: Normal Exam Reading location: [facility] BI-RADS: 1 Negative Procedure Note Neida Gutierrez MD - 01/24/2024 - DEL SCREENING BILATERAL DIGITAL W CAD W FLORINDA BILATERAL DIGITAL SCREENING MAMMOGRAM 3D/2D WITH CAD WITH MEDIOLATERAL OBLIQUE CRANIOCAUDAL: 01/20/2024 The study was acquired using digital technology and interpreted from soft copy. Current study was also evaluated with ICAD version 7.2. 2D digital mammographic views, as well as 3D digital tomosynthesis were performed in the CC and MLO projections. CLINICAL: Routine screening. Patient has no complaints. No personal history of cancer. Maternal aunt had breast cancer. COMPARISONS: Comparison is made to exams dated: 04/11/2021 [facility], 06/08/2014, 05/25/2013 [facility], and 05/16/2021 [facility]. BREAST TISSUE:There are scattered fibroglandular densities in both breasts. FINDINGS: No significant masses, calcifications, or other findings are seen in either breast. There has been no significant interval change. IMPRESSION: BI-RAD 1 NEGATIVE There is no mammographic evidence of malignancy. A 1 year screening mammogram is recommended. A letter will be sent to the patient with these results. The patient will be entered into a reminder system with a target due date of 1 year for her next screening exam. Electronically signed by: Neida wilcox/charley:01/23/2024 11:43:58 Slot Machine Department Floorperson(s): RT Lynette(R)(M), [facility] letter sent: Normal Exam Reading location: [facility] BI-RADS: 1 Negative Peyman Mackey MD IMG MAMMO ORDERABLES Radha l Result * HM COLONOSCOPY (04/20/2012) Guido Dale MD PROCEDURE/MINOR SURGICAL OR DERABLES Final Result from Last 3 Months or Most Recently Relevant to Health Maintenance Insurance [facility] Care Teams String Studies Director Relationship Specialty Start Date End Date Peyman Mackey MD [address] [address] PCP - General Family Medicine 11/02/19 Diego Crain MD Consulting Physician Orthopaedic Sports Medicine 03/10/19 Ida Mejia PAC [address] [place] [phone] Nurse Practitioner Orthopaedic Surgery 05/08/19 Herrera Payne MD [address] [address] Consulting Physician Colon and Rectal Surgery 03/24/24 Rosendo Krishnamurthy MD #2 [facility] [place] [phone] Consulting Physician Pulmonary Disease 04/13/25
--- OUTSIDE RECORDS SUMMARY | 2025-07-17 13:08 | XMS_ITS | Encounter Summary ---
Author Organization [facility] Address [address] [place] [address] Phone Care Team Providers Care Kier Boiler Name Role Phone Diego Crain MD Unavailable Ida Mejia [facility] Unavailable [phone] Peyman Mackey MD Primary Care Provider [phone] Herrera Payne MD Unavailable Rosendo Krishnamurthy MD Unavailable Reason for Visit * Reason Comments Medication Refill Encounter Details Date Type Department Care Team (Late st Contact Info) Description 04/01/2023 Refill [facility] - Family Medicine [facility] [address] [place] [address] Peyman Mackey MD [address] [address] Medication Refill Social History Tobacco Use Types [...] on file Legal Sex Female 3:29 PM ASSEMBLY LINE DRIVER Gender Identity Female 06/19/2023 12:12 AM ASSEMBLY LINE DRIVER Sexual Orientation Straight 06/19/2023 12 :12 AM ASSEMBLY LINE DRIVER documented as of this encounter Miscellaneous Notes * Telephone Encounter - Deanne Vincent RN - 04/01/2023 12:07 PM CDT Medication failed the protocol, provider to review and approve the medication order if appropriate. Requested Prescriptions Pending Prescriptions Disp Refills diclofenac (VOLTAREN) 75 MG Tablet Delayed Response [Pharmacy Med Name: Diclofenac Sodium 75 MG Oral Tablet Delayed Release] 180 Tablet 0 Sig: Take 1 tablet by mouth twice daily NSAIDs Protocol Failed - 04/01/2023 11:25 AM Failed - Normal serum creatinine in past 12 months CREATININE - POCT Date Value Ref Range Status 10/03/2021 0.7 0.6 - 1.3 mg/dL Final Failed - AST less than 55 or ALT less than 90 in past 12 months SGOT (AST) Date Value Ref Range Status 04/11/2021 15 <=32 U/L Final SGPT (ALT) Date Value Ref Range Status 04/11/2021 20 <=41 U/L Final Failed - HGB greater than 10 or [...] 07/15/22 Telemedicine Peyman Mackey MD [facility] 04/15/22 Telemedicine Peyman Mackey MD [facility] Showing recent visits within past 365 days and meeting all other requirements Future Appointments Date Type Provider Dept 04/13/23 Appointment Peyman Mackey MD [facility] Showing future appointments within next 90 days and meeting all other requirements Passed - No matching NSAID med order in past 45 days No matching medication orders between 02/15/2023 12:07 PM and 04/01/2023 12:07 PM amLODIPine (NORVASC) 10 MG Tablet [Pharmacy Med Name: amLODIPine Besylate 10 MG Oral Tablet] 90 Tablet 0 Sig: Take 1 tablet by mouth once daily Calcium-Channel Blockers Protocol Passed - 04/01/2023 11:25 AM Passed - BP on record in [...] 07/15/22 Telemedicine Peyman Mackey MD [facility] 04/15/22 Telemedicine Peyman Mackey MD [facility] Showing recent visits within past 365 days and meeting all other requirements Future Appointments Date Type Provider Dept 04/13/23 Appointment Peyman Mackey MD [facility] Showing future appointments within next 90 days and meeting all other requirements buPROPion SR (WELLBUTRIN SR) 150 MG TABLET SR 12 HR [Pharmacy Med Name: buPROPion HCl ER (SR) 150 MG Oral Tablet Extended Release 12 Hour] 180 Tablet 0 Sig: Take 1 tablet by mouth twice daily Bupropion (6 Month Refill Only) Protocol Passed - 04/01/2023 11:25 AM Passed - Visit with relevant provider in past 6 months or upcoming 90 days Recent Visits Date Type Provider Dept 11/05/22 Office Visit Peyman Mackey MD [facility] Showing recent visits within past 182 days and meeting all other requirements Future Appointments Date Type Provider Dept 04/13/23 Appointment Peyman Mackey MD [facility] Showing future appointments within next 90 days and meeting all other requirements Passed - Has an encounter in the past 6 months with a depression or anxiety visit diagnosis Passed - Patient has established therapy with Bupropion for at least 6 months ezetimibe (ZETIA) 10 MG Tablet [Pharmacy Med Name: Ezetimibe 10 MG Oral Tablet] 90 Tablet 0 Sig: Take 1 tablet by mouth once daily Intestinal Cholesterol Absorption Inhibitors Protocol Failed - 04/01/2023 11:25 AM Failed - Lipid panel in past year LDL Date Value Ref Range Status 04/11/2021 146 (H) 5 - 130 mg/dL Final HDL CHOLESTEROL Date Value Ref Range Status 04/11/2021 46.2 >40 mg/dL Final CHOLESTEROL Date Value Ref Range Status 04/11/2021 232 (H) <=200 mg/dL Final TRIGLYCERIDES Date Value Ref Range Status 04/11/2021 198 (H) <150 mg/dL Final VLDL Date Value Ref Range Status 04/11/2021 40 5 - 55 mg/dL Final CHOL/HDL RATIO Date Value Ref Range Status 04/11/2021 5.0 (H) 0.0 - 4.4 Final NON-HDL CHOLESTEROL Date Value Ref Range Status 04/11/2021 185.8 (H) <130 mg/dL Final Passed - Visit with relevant provider in past year or upcoming 90 days Recent Visits Date Type Provider Dept 11/05/22 Office Visit Peyman Mackey MD [facility] 08/19/22 Telemedicine Peyman Mackey MD [facility] 07/15/22 Telemedicine Peyman Mackey MD [facility] 04/15/22 Telemedicine Peyamn Mackey MD [facility] Showing recent visits within past 365 days and meeting all other requirements Future Appointments Date Type Provider Dept 04/13/23 Appointment Peyman Mackey MD [facility] Showing future appointments within next 90 days and meeting all other requirements documented in this encounter Plan of Treatment Upcoming Encounters Date Type Department Care Team (Late st Contact Info) Description 08/06/2025 1:30 PM ASSEMBLY LINE DRIVER Office Visit [facility] - Pulmonology & Sleep Medicine [facility] [address] [place] [address] Rosendo Krishnamurthy MD [address] [place] [address] 08/30/2025 1:00 PM ASSEMBLY LINE DRIVER Office Visit [facility] Medical [facility] Family [facility] [address] [place] [address] Peyman Mackey MD #2 [facility] [address] [place] [address] documented as of this encounter Visit Diagnoses Not on filedocumented in this encounter Additional Health Concerns Assessment Noted Time PHQ-9 Depression Total Score: 16 023 2:01 PM CDT documented as of this encounter Care Teams Kier Boiler Relationship Specialty Start Date End Date Peyman Mackey MD #2 [facility] [address] [place] [address] PCP - General Family Medicine 11/02/19 Diego Crain MD Consulting Physician Orthopaedic Sports Medicine 03/10/19 Ida Mejia PAC [address] [place] [phone] Nurse Practitioner Orthopaedic Surgery 05/08/19 Herrera Payne MD #2 [facility] [address] [place] [address] Consulting Physician Colon and Rectal Surgery 03/24/24 Rosendo Krishnamurthy MD [address] [place] [address] Consulting Physician Pulmonary Disease 04/13/25 documented as of this encounter
--- OUTSIDE RECORDS SUMMARY | 2025-07-17 13:08 | XMS_ITS | Encounter Summary ---
Author Organization [facility] Address [address] [place] [address] Phone Care Team Providers Care Comparison Shopper Name Role Phone Diego Crain MD Unavailable [phone] Ida Mejia [facility] Unavailable [phone] Peyman Mackey MD Primary Care Provider [phone] Herrera Payne MD Unavailable Rosendo Krishnamurthy MD Unavailable Reason for Visit * Reason Comments Medication Refill Encounter Details Date Type Department Care Team (Late st Contact Info) Description 01/02/2023 Refill [facility] [address] [place] [address] Peyman Mackey MD [address] [address] Medication Refill Social History Tobacco Use Types Packs/Day Years Used Date Smoking Tobacco: Former Cigarettes 41.1 0 03/10/1979 - 05/2020 Smokeless Tobacco: Never Alcohol Use Standard Drinks/Week Comments Not Currently 0 (1 standard drink = 0.6 oz pur e alcohol) PHQ-2 Answer Date Recorded Total Score - Questions 1-9 16 3 Education Answer Date Recorded What is the highest level of school you have completed or the highest degree you have received? Some college, no degree 08/27/2020 Sexually Active Control [employer] Comments Not Currently Comments No Sex and Gender Information Value Date Recorded Sex Assigned at Not on file Legal Sex Female 3:29 PM CAREER SERVICES REPRESENTATIVE Gender Identity Female 06/19/2023 12:12 AM CAREER SERVICES REPRESENTATIVE Sexual Orientation Straight 06/19/2023 12 :12 AM CAREER SERVICES REPRESENTATIVE documented as of this encounter Miscellaneous Notes * Telephone Encounter - Tari Owens RN - 01/04/2023 10:00 AM CDT Medication failed the protocol, provider to review and approve the medication order if appropriate. Requested Prescriptions Pending Prescriptions Disp Refills diclofenac (VOLTAREN) 75 MG Tablet Delayed Response [Pharmacy Med Name: Diclofenac Sodium 75 MG Oral Tablet Delayed Release] 180 Tablet 0 Sig: Take 1 tablet by mouth twice daily NSAIDs Protocol Failed - 01/02/2023 8:40 AM Failed - Normal serum creatinine in [...] [facility] 04/15/22 Telemedicine Peyman Mackey MD [facility] Showing recent visits within past 365 days and meeting all other requirements Future Appointments Date Type Provider Dept 02/10/23 Appointment Peyman Mackey MD [facility] Showing future appointments within next 90 days and meeting all other requirements Passed - No matching NSAID med order in past 45 days No matching medication orders between 11/20/2022 10:00 AM and 01/04/2023 10:00 AM documented in this encounter Plan of Treatment Upcoming Encounters Date Type Department Care Team (Late st Contact Info) Description 08/06/2025 1:30 PM CAREER SERVICES REPRESENTATIVE Office Visit [facility] Medical [facility] - Pulmonology & Sleep Medicine - [place] [address]2 [facility] [place] [address] Rosendo Krishnamurthy MD [address] [place] [address] 08/30/2025 1:00 PM CAREER SERVICES REPRESENTATIVE Office Visit [facility] Medical [facility] - Family Medicine - [place] [address] [place] [address] Peyman Mackey MD #[address] [address] documented as of this encounter Visit Diagnoses Not on filedocumented in this encounter Additional Health Concerns Assessment Noted Time PHQ-9 Depression Total Score: 16 023 2:01 PM CDT documented as of this encounter Care Teams Comparison Shopper Relationship Specialty Start Date End Date Peyman Mackey MD #[address] [place] [address] PCP - General Family Medicine 11/02/19 Diego Crain MD Consulting Physician Orthopaedic Sports Medicine 03/10/19 Ida Mejia PAC [address] [place] [phone] Nurse Practitioner Orthopaedic Surgery 05/08/19 Herrera Payne MD #[address] [address] Consulting Physician Colon and Rectal Surgery 03/24/24 Rosendo Krishnamurthy MD [address] [place] [phone] Consulting Physician Pulmonary Disease 04/13/25 documented as of this encounter
--- OUTSIDE RECORDS SUMMARY | 2025-07-17 13:08 | XMS_ITS | Encounter Summary ---
Author Organization [facility] Address [address] [place] [address] Phone Care Team Providers Care Golf Course Ranger Name Role Phone Peyman Mackey MD Primary Care Provider [phone] Encounter Details Date Type Department Care Team (Late st Contact Info) Description 07/17/2025 Telephone [facility] Orthopaedic Surgery [address] [facility] 1st Floor [address] [place] [address] Rachell Gray MD [address] [facility] [address] [place] [address] Social History Tobacco Use Types Packs/Day Years Used Date Smoking Tobacco: Former Cigarettes Smokeless Tobacco: Never Alcohol Use Standard Drinks/Week Comments No 0 (1 standard drink = 0.6 oz pur e alcohol) Comments No Sex and Gender Information Value Date Recorded Sex Assigned at Not on file Legal Sex Female 12:29 AM SERVER SUPPORT TECHNICIAN Gender Identity Not on file Sexual Orientation Not on file documented as of this encounter Miscellaneous Notes * Telephone Encounter - Anabell Herrera RMA - 07/17/2025 9:39 AM CST I called patient to see if she has been going to PT. I was unable to speak with, I LVM and callbacknumber. ER SUPPORT TECHNICIAN documented in this encounter Plan of Treatment Not on file documented as of this encounter Visit Diagnoses Not on filedocumented in this encounter Care Teams Golf Course Ranger Relationship Specialty Start Date End Date Peyman Mackey MD [address] [address] PCP - General 08/04/21 documented as of this encounter
--- OUTSIDE RECORDS SUMMARY | 2025-07-17 13:08 | XMS_ITS | Encounter Summary ---
Author Organization [facility] Address [address] [place] [address] Phone Care Team Providers Care Plan Examiner Name Role Phone Diego Crain MD Unavailable Ida Mejia [facility] Unavailable [phone] Peyman Mackey MD Primary Care Provider [phone] Herrera Payne MD Unavailable Rosendo Krishnamurthy MD Unavailable Reason for Visit * Reason Comments Medication Refill Encounter Details Date Type Department Care Team (Late st Contact Info) Description 10/10/2022 Refill [facility] - Family Medicine [facility] #[address] [place] [address] Peyman Mackey MD #[address] [address] Medication Refill Social History Tobacco Use Types Packs/Day Years Used Date Smoking Tobacco: Former Cigarettes 41.1 0 03/10/1979 - 05/2020 Smokeless Tobacco: Never Alcohol Use Standard Drinks/Week Comments Not Currently 0 (1 standard drink = 0.6 oz pur e alcohol) PHQ-2 Answer Date Recorded Total Score - Questions 1-9 0 01/30 Education Answer Date Recorded What is the highest level of school you have completed or the highest degree you have received? Some college, no degree 08/27/2020 Sexually Active [employer] Comments Not Currently Comments No Sex and Gender Information Value Date Recorded Sex Assigned at Not on file Legal Sex Female 3:29 PM ACTING SECTION CHIEF Gender Identity Female 06/19/2023 12:12 AM ACTING SECTION CHIEF Sexual Orientation Straight 06/19/2023 12 :12 AM ACTING SECTION CHIEF documented as of this encounter Miscellaneous Notes * Telephone Encounter - Tari Oewns RN - 10/12/2022 9:48 AM CDT Medication failed the protocol, provider to review and approve the medication order if appropriate. Requested Prescriptions Pending Prescriptions Disp Refills buPROPion SR (WELLBUTRIN SR) 150 MG TABLET SR 12 HR [Pharmacy Med Name: buPROPion HCl ER (SR) 150 MG Oral Tablet Extended Release 12 Hour] 180 Tablet 1 Sig: Take 1 tablet by mouth twice daily Bupropion (6 Month Refill Only) Protocol Failed - 10/10/2022 9:31 AM Failed - Has an encounter in the past 6 months with a depression or anxiety visit diagnosis Passed - Visit with relevant provider in past 6 months or upcoming 90 days Recent Visits Date Type Provider Dept 08/19/22 Telemedicine Peyman Mackey MD [facility] 07/15/22 Telemedicine Peyman Mackey MD [facility] 04/15/22 Telemedicine Peyman Mackey MD [facility] Showing recent visits within past 182 days and meeting all other requirements Future Appointments Date Type Provider Dept 11/05/22 Appointment Peyman Mackey MD [facility] Showing future appointments within next 90 days and meeting all other requirements Passed - Patient has established therapy with Bupropion for at least 6 months diclofenac (VOLTAREN) 75 MG Tablet Delayed Response [Pharmacy Med Name: Diclofenac Sodium 75 MG Oral Tablet Delayed Release] 180 Tablet 0 Sig: Take 1 tablet by mouth twice daily NSAIDs Protocol Failed - 10/10/2022 9:31 AM Failed - Normal serum creatinine in [...] days Recent Visits Date Type Provider Dept 08/19/22 Telemedicine Peyman Mackey MD [facility] 07/15/22 Telemedicine Peyman Mackey MD [facility] 04/15/22 Telemedicine Peyman Mackey MD [facility] 10/28/21 Office Visit Peyman Mackey MD [facility] Showing recent visits within past 365 days and meeting all other requirements Future Appointments Date Type Provider Dept 11/05/22 Appointment Peyman Mackey MD [facility] Showing future appointments within next 90 days and meeting all other requirements Passed - No matching NSAID med order in past 45 days No matching medication orders between 08/28/2022 9:48 AM and 10/12/2022 9:48 AM documented in this encounter Plan of Treatment Upcoming Encounters Date Type Department Care Team (Late st Contact Info) Description 08/06/2025 1:30 PM ACTING SECTION CHIEF Office Visit [facility] - Pulmonology & Sleep Medicine - [place] [address] [place] [address] Rosendo Krishnamurthy MD #[address] [place] [address] 08/30/2025 1:00 PM ACTING SECTION CHIEF Office Visit [facility] - Family [facility] #[address] [place] [address] Peyman Mackey MD [address] [address] documented as of this encounter Visit Diagnoses Not on filedocumented in this encounter Additional Health Concerns Assessment Noted Time PHQ-9 Depression Total Score: 0 02/14/20 2:00 PM CDT documented as of this encounter Care Teams Plan Examiner Relationship Specialty Start Date End Date Peyman Mackey MD [address] [address] PCP - General Family Medicine 11/02/19 Diego Crain MD Consulting Physician Orthopaedic Sports Medicine 03/10/19 Ida Mejia PAC [address] [place] [phone] Nurse Practitioner Orthopaedic Surgery 05/08/19 Herrera Payne MD #[address] [address] Consulting Physician Colon and Rectal Surgery 03/24/24 Rosendo Krishnamurthy MD #[address] [place] [address] Consulting Physician Pulmonary Disease 04/13/25 documented as of this encounter
--- OUTSIDE RECORDS SUMMARY | 2025-07-17 13:08 | XMS_ITS | Encounter Summary ---
Author Organization [facility] Address [address] [place] [address] Phone Care Team Providers Care B2B Sales Professional Name Role Phone Diego Crain MD Unavailable [phone] Ida Mejia [facility] Unavailable [phone] Peyman Mackey MD Primary Care Provider [phone] Herrera Payne MD Unavailable Rosendo Krishnamurthy MD Unavailable Reason for Visit * Reason Comments Medication Refill Encounter Details Date Type Department Care Team (Late st Contact Info) Description 04/27/2023 [facility]ill [facility] [address] [place] [address] Peyman Mackey MD [address] [address] Medication Refill Social History Tobacco Use Types [...] on file Legal Sex Female 3:29 PM GOVERNMENT OPERATIONS CONSULTANT Gender Identity Female 06/19/2023 12:12 AM GOVERNMENT OPERATIONS CONSULTANT Sexual Orientation Straight 06/19/2023 12 :12 AM GOVERNMENT OPERATIONS CONSULTANT documented as of this encounter Miscellaneous Notes * Telephone Encounter - Deanne Vincent RN - 04/28/2023 9:18 AM CDT Medication failed the protocol, provider to review and approve the medication order if appropriate.PDMP reviewed Requested Prescriptions Pending Prescriptions Disp Refills gabapentin (NEURONTIN) 100 MG Capsule [Pharmacy Med Name: Gabapentin 100 MG Oral Capsule] 60 Capsule 0 Sig: TAKE 1 CAPSULE BY MOUTH TWICE DAILY NEEDED Not Delegated - Anticonvulsants Excluding Benzodiazepines Protocol Failed - 04/27/2023 4:04 PM Failed - This refill cannot be delegated [...] Delegated - Opioid Agonists Protocol Failed - 04/27/2023 4:04 PM Failed - This refill cannot be delegated [...] 90 days and meeting all other requirements tiZANidine (ZANAFLEX) 2 MG Tablet [Pharmacy Med Name: tiZANidine HCl 2 MG Oral Tablet] 30 Tablet 0 Sig: TAKE 1 TABLET BY MOUTH NIGHTLY NEEDED FOR MUSCLE SPASM Not Delegated - Muscle Relaxants Protocol Failed - 04/27/2023 4:04 PM Failed - This refill cannot be delegated Failed - ALT less than 90 and AST less than 55 on record in past 12 months No results found for: SGOTAST No results found for: SGPTALT Passed - Visit with relevant provider in [...] 90 days and meeting all other requirements diclofenac (VOLTAREN) 75 MG Tablet Delayed Response [Pharmacy Med Name: Diclofenac Sodium 75 MG Oral Tablet Delayed Release] 180 Tablet 0 Sig: Take 1 tablet by mouth twice daily NSAIDs Protocol Failed - 04/27/2023 4:04 PM Failed - Normal serum creatinine in past 12 months CREATININE - POCT Date Value Ref Range Status 10/03/2021 0.7 0.6 - 1.3 mg/dL Final Failed - No matching NSAID med order in past 45 days Matching medication order placed on 04/01/2023 1:08 PM Order [id number]: diclofenac (VOLTAREN) 75 MG Tablet Delayed Response (For orders placed between 03/14/2023 9:18 AM and 04/28/2023 9:18 AM) Failed - AST less than 55 or [...] Dept 11/05/22 Office Visit Peyman Mackey MD [facility] 08/19/22 Telemedicine Peyman Mackey MD [facility] 07/15/22 Telemedicine Peyman Mackey MD [facility] Showing [...] st Contact Info) Description 08/06/2025 1:30 PM GOVERNMENT OPERATIONS CONSULTANT Office Visit [facility] - Pulmonology & Sleep Medicine [facility] [address] [place] [address] Rosendo Krishnamurthy MD [address] [place] [address] 08/30/2025 1:00 PM GOVERNMENT OPERATIONS CONSULTANT Office Visit [facility] - Family Medicine [facility] [address] [place] [address] Peyman Mackey MD #[address] [address] documented as of this encounter Visit Diagnoses Diagnosis Chronic pain syndrome Right leg paresthesias Disturbance of skin sensation documented in this encounter Additional Health Concerns Assessment Noted Time PHQ-9 Depression Total Score: 16 023 2:01 PM CDT documented as of this encounter Care Teams B2B Sales Professional Relationship Specialty Start Date End Date Peyman Mackey MD #2 [facility] [address] [place] [address] PCP - General Family Medicine 11/02/19 Diego Crain MD Consulting Physician Orthopaedic Sports Medicine 03/10/19 Ida Mejia PAC [address] [place] [address] Nurse Practitioner Orthopaedic Surgery 05/08/19 Herrera Payne MD #2 [facility] [address] [place] [address] Consulting Physician Colon and Rectal Surgery 03/24/24 Rosendo Krishnamurthy MD [address] [place] [address] Consulting Physician Pulmonary Disease 04/13/25 documented as of this encounter
--- OUTSIDE RECORDS SUMMARY | 2025-07-17 13:08 | XMS_ITS | Encounter Summary ---
Author Organization [facility] Address [address] [place] [address] Phone Care Team Providers Care Health Program Specialist Name Role Phone Diego Crain MD Unavailable [phone] Ida Mejia [facility] Unavailable [phone] Peyman Mackey MD Primary Care Provider [phone] Herrera Payne MD Unavailable Rosendo Krishnamurthy MD Unavailable Reason for Visit * Reason Comments Medication Refill Encounter Details Date Type Department Care Team (Late st Contact Info) Description 08/31/2023 Refill [facility] Medicine [facility] #2 [place] [address] Peyman Mackey MD #[address] [address] Medication Refill Social History Tobacco Use Types [...] on file Legal Sex Female 3:29 PM HAZARDOUS MATERIALS ANALYST Gender Identity Female 06/19/2023 12:12 AM HAZARDOUS MATERIALS ANALYST Sexual Orientation Straight 06/19/2023 12 :12 AM HAZARDOUS MATERIALS ANALYST documented as of this encounter Miscellaneous Notes * Telephone Encounter - Yin Louis RMA - 09/01/2023 3:48 PM HAZARDOUS MATERIALS ANALYST Pt notified, will keep Sep appt RDOUS MATERIALS ANALYST * Telephone Encounter - Peyman Mackey MD - 08/31/2023 3:45 PM HAZARDOUS MATERIALS ANALYST Let her know no more refills on controlled substances until she is seen. Remind her she is due to come in person every 3 months since she is on multiple controled meds. Schedule her to see me or Andreas this week or early next week. Thanks! RDOUS MATERIALS ANALYST * Telephone Encounter - Tari Owens RN - 08/31/2023 3:38 PM CST PDMP 08/01/23 Medication failed the protocol, provider to review and approve the medication order if appropriate. Requested Prescriptions Pending Prescriptions Disp Refills gabapentin (NEURONTIN) 100 MG Capsule [Pharmacy Med Name: Gabapentin 100 MG Oral Capsule] 60 Capsule 0 Sig: TAKE 1 CAPSULE BY MOUTH TWICE DAILY NEEDED Not Delegated - Anticonvulsants Excluding Benzodiazepines Protocol Failed - 08/31/2023 1:13 PM Failed - This refill cannot be delegated Passed - Visit with relevant provider in past 12 months or upcoming 90 days Recent Visits Date Type Provider Dept 11/05/22 Office Visit Peyman Mackey MD [facility] Showing recent visits within past 365 days and meeting all other requirements Future Appointments Date Type Provider Dept 09/30/23 Appointment Peyman Mackey MD [facility] Showing future appointments within next 90 days and meeting all other requirements traMADol (ULTRAM) 50 MG Tablet [Pharmacy Med Name: traMADol HCl 50 MG Oral Tablet] 60 Tablet 0 Sig: TAKE 1 TABLET BY MOUTH TWICE DAILY NEEDED FOR MODERATE OR MORE SEVERE PAIN Not Delegated - Opioid Agonists Protocol Failed - 08/31/2023 1:13 PM Failed - This refill cannot be delegated Passed - Visit with relevant provider in past 12 months or upcoming 90 days Recent Visits Date Type Provider Dept 11/05/22 Office Visit Pyeman Mackey MD [facility] Showing recent visits within past 365 days and meeting all other requirements Future Appointments Date Type Provider Dept 09/30/23 Appointment Peyman Mackey MD [facility] Showing future appointments within next 90 days and meeting all other requirements RDOUS MATERIALS ANALYST documented in this encounter Plan of Treatment Upcoming Encounters Date Type Department Care Team (Late st Contact Info) Description 08/06/2025 1:30 PM HAZARDOUS MATERIALS ANALYST Office Visit [facility] - Pulmonology & Sleep Medicine - [place] [address] [place] [address] Rosendo Krishnamurthy MD [address] [place] [address] 08/30/2025 1:00 PM HAZARDOUS MATERIALS ANALYST Office Visit [facility] - Family Medicine - [place] [address] [place] [address] Peyman Mackey MD #[address] [address] documented as of this encounter Visit Diagnoses Diagnosis Chronic pain syndrome documented in this encounter Additional Health Concerns Assessment Noted Time PHQ-9 Depression Total Score: 16 023 2:01 PM CDT documented as of this encounter Care Teams Health Program Specialist Relationship Specialty Start Date End Date Peyman Mackey MD #2 [facility] [address] [place] [address] PCP - General Family Medicine 11/02/19 Diego Crain MD Consulting Physician Orthopaedic Sports Medicine 03/10/19 Ida Mejia PAC [address] [place] [address] Nurse Practitioner Orthopaedic Surgery 05/08/19 Herrera Payne MD #2 [facility] [address] [place] [address] Consulting Physician Colon and Rectal Surgery 03/24/24 Rosendo Krishnamurthy MD [address] [place] [id number] Consulting Physician Pulmonary Disease 04/13/25 documented as of this encounter
--- OUTSIDE RECORDS SUMMARY | 2025-07-17 13:08 | XMS_ITS | Encounter Summary ---
Author Organization [facility] Address [address] [place] [address] Phone Care Team Providers Care Rig Builder Name Role Phone Diego Crain MD Unavailable [phone] Ida Mejia PAC Unavailable [phone] Peyman Mackey MD Primary Care Provider [phone] Herrera Payne MD Unavailable Rosendo Krishnamurthy MD Unavailable Encounter Details Date Type Department Care Team (Late st Contact Info) Description 07/16/2025 Results Follow-Up [facility] Adult Pediatric Inpatient Virtual [address] [place] [address] Rosendo Krishnamurthy MD [address] [place] [address] ADULT TRANS THORACIC ECHO 2D COMPLETE Social History Tobacco Use Types Packs/Day Years Used Date Smoking Tobacco: Former Cigarettes 0.5 41.2 0 03/10/1979 - 05/14/2020 Smokeless Tobacco: Never Comments:Cigarettes..need to quit. I quit on May 2020 Alcohol Use Standard Drinks/Week Comments Not Currently 0 (1 standard drink = 0.6 oz pur e alcohol) [facility] Utilities Answer Date Recorded In the past 12 months has th e electric, gas, oil, or water company [...] 09/27/2023 How often do you attend chur or holiness services? 1 to 4 times per year 09/27/2023 Do you belong to any clubs o r organizations such as latter day groups, unions, fraternal or athletic groups, or [...] Recorded Total Score - Questions 1-9 0 04/03 [facility] - Occupational [...] place to sleep or slept in a penitentiary (including now)? No 09/27/2023 Education Answer Date Recorded What is the highest level of school you have completed or the highest degree you have received? Some college, no degree 08/27/2020 Sexually Active Control Partners Comments Not Currently Male Comments No Sex and Gender Information Value Date Recorded Sex Assigned at Not on file Legal Sex Female 3:29 PM CARTON FILLING MACHINE OPERATOR Gender Identity Female 06/19/2023 12:12 AM CARTON FILLING MACHINE OPERATOR Sexual Orientation Straight 06/19/2023 12 :12 AM CARTON FILLING MACHINE OPERATOR documented as of this encounter Miscellaneous Notes * Telephone Encounter - Meron Greene RN - 07/17/2025 11:14 AM CST Patient aware via [employer] FILLING MACHINE OPERATOR documented in this encounter Plan of Treatment Upcoming Encounters Date Type Department Care Team (Late st Contact Info) Description 08/06/2025 1:30 PM CARTON FILLING MACHINE OPERATOR Office Visit [facility] - Pulmonology & Sleep Medicine - [place] #[address] [place] [address] Rosendo Krishnamurthy MD [address] [place] [address] 08/30/2025 1:00 PM CARTON FILLING MACHINE OPERATOR Office Visit [facility] - Family [facility] #[address] [place] [address] Peyman Mackey MD [address] [address] documented as of this encounter Visit Diagnoses Not on filedocumented in this encounter Additional Health Concerns Assessment Noted Time PHQ-9 Depression Total Score: 0 04/26/20 1:45 PM CDT documented as of this encounter Care Teams Rig Builder Relationship Specialty Start Date End Date Peyman Mackey MD #[id number] [address] PCP - General Family Medicine 11/02/19 Diego Crain MD Consulting Physician Orthopaedic Sports Medicine 03/10/19 Ida Mejia PAC [facility] [place] [address] Nurse Practitioner Orthopaedic Surgery 05/08/19 Herrera Payne MD #2 [facility] [address] [place] [address] Consulting Physician Colon and Rectal Surgery 03/24/24 Rosendo Krishnamurthy MD #[address] [place] [address] Consulting Physician Pulmonary Disease 04/13/25 documented as of this encounter
--- OUTSIDE RECORDS SUMMARY | 2025-07-17 13:08 | XMS_ITS | Encounter Summary ---
Author Organization [facility] Address [address] [place] [address] Phone Care Team Providers Care Roll On Man Name Role Phone Diego Crain MD Unavailable Ida Mejia [facility] Unavailable [phone] Peyman Mackey MD Primary Care Provider [phone] Herrera Payne MD Unavailable Rosendo Krishnamurthy MD Unavailable Reason for Visit * Reason Comments Medication Refill Encounter Details Date Type Department Care Team (Late st Contact Info) Description 07/01/2025 Refill [facility] - [facility] Medicine [facility] #[address] [place] [address] Peyman Mackey MD #[address] [address] Medication Refill Social History Tobacco Use Types Packs/Day Years Used Date Smoking Tobacco: Former Cigarettes 0.5 41.2 0 03/10/1979 - 05/14/2020 Smokeless Tobacco: Never Comments:Cigarettes..need to quit. I quit on May 2020 Alcohol Use Standard Drinks/Week Comments Not Currently 0 (1 standard drink = 0.6 oz pur e alcohol) [facility] Utilities Answer Date Recorded In the [...] often do you attend chur ch or uatsdin services? 1 to 4 times per year 09/27/2023 Do you belong to any clubs o r organizations such as druze groups, unions, fraternal or athletic groups, or [...] Recorded Total Score - Questions 1-9 0 2 11/2024 [facility] ional [facility] - Occupational Stress [...] on file Legal Sex Female 3:29 PM ELEVATOR TENDER Gender Identity Female 06/19/2023 12:12 AM ELEVATOR TENDER Sexual Orientation Straight 06/19/2023 12 :12 AM ELEVATOR TENDER documented as of this encounter Miscellaneous Notes * Telephone Encounter - Tari Owens RN - 07/03/2025 8:26 AM CST Images from the original note were not included. traMADol HCl Dispensed Days Supply Quantity Provider Pharmacy TRAMADOL 50MG TAB 06/18/2025 30 90 Each Peyman Mackey MD [id number] ... TRAMADOL 50MG TAB 05/19/2025 30 90 Each Peyman Mackey MD [id number] ... TRAMADOL 50MG TAB 04/14/2025 30 90 Each Peyman Mackey MD [id number] ... ATOR TENDER documented in this encounter Plan of Treatment Upcoming Encounters Date Type Department Care Team (Late st Contact Info) Description 08/06/2025 1:30 PM ELEVATOR TENDER [facility] #[address] [place] [address] Rosendo Krishnamurthy MD #[address] [place] [address] 08/30/2025 1:00 PM ELEVATOR TENDER Office Visit [facility] #2 [place] [address] Peyman Mackey MD #[address] [address] documented as of this encounter Visit Diagnoses Diagnosis Chronic pain syndrome documented in this encounter Additional Health Concerns Assessment Noted Time PHQ-9 Depression Total Score: 0 04/26/20 25 1:45 PM CDT documented as of this encounter Care Teams Roll On Man Relationship Specialty Start Date End Date Peyman Mackey MD #[address] [address] PCP - General Family Medicine 11/02/19 Diego Crain MD Consulting Physician Orthopaedic Sports Medicine 03/10/19 Ida Mejia PAC [address] [place] [address] Nurse Practitioner Orthopaedic Surgery 05/08/19 Herrera Payne MD #[address] [address] Consulting Physician Colon and Rectal Surgery 03/24/24 Rosendo Krishnamurthy MD #[address] [place] [address] Consulting Physician Pulmonary Disease 04/13/25 documented as of this encounter
--- OUTSIDE RECORDS SUMMARY | 2025-07-17 13:08 | XMS_ITS | Encounter Summary ---
Author Organization [facility] Address [address] [place] [address] Phone Care Team Providers Care Position Classification Specialist Name Role Phone Diego Crain MD Unavailable [phone] Ida Mejia [facility] Unavailable [phone] Peyman Mackey MD Primary Care Provider [phone] Herrera Payne MD Unavailable Rosendo Krishnamurthy MD Unavailable Reason for Visit * Reason Comments Medication Refill Encounter Details Date Type Department Care Team (Late st Contact Info) Description 07/16/2022 [facility]ill [facility] - Family Medicine [facility] #[address] [place] [address] Peyman Mackey MD #[address] [address] Medication Refill Social History Tobacco Use Types [...] on file Legal Sex Female 3:29 PM INVENTORY COORDINATOR Gender Identity Female 06/19/2023 12:12 AM INVENTORY COORDINATOR Sexual Orientation Straight 06/19/2023 12 :12 AM INVENTORY COORDINATOR documented as of this encounter Miscellaneous Notes * Telephone Encounter - Tari Owens RN - 07/16/2022 11:03 AM CST Medication failed the protocol, provider to review and approve the medication order if appropriate. Requested Prescriptions Pending Prescriptions Disp Refills diclofenac (VOLTAREN) 75 MG Tablet Delayed Response [Pharmacy Med Name: Diclofenac Sodium 75 MG Oral Tablet Delayed Release] 180 Tablet 0 Sig: Take 1 tablet by mouth twice daily NSAIDs Protocol Failed - 07/16/2022 10:00 AM Failed - AST less than 55 or ALT less than 90 in past 12 months SGOT (AST) Date Value Ref Range Status 04/11/2021 15 <=32 U/L Final SGPT (ALT) Date Value Ref Range Status 04/11/2021 20 <=41 U/L Final Passed - Normal serum creatinine in past 12 months CREATININE - POCT Date Value Ref Range Status 10/03/2021 0.7 0.6 - 1.3 mg/dL Final Passed - Visit with relevant provider in past 12 months or upcoming 90 days Recent Visits Date Type Provider Dept 07/15/22 Telemedicine Peyman Mackey MD [facility] 04/15/22 Telemedicine Peyman Mackey MD [facility] 10/28/21 Office Visit Peyman Mackey MD [facility] 07/29/21 Office Visit Peyman Mackey MD [facility] Showing recent visits within past 365 days and meeting all other requirements Future Appointments Date Type Provider Dept 07/21/22 Appointment Peyman Mackey MD [facility] Showing future appointments within next 90 days and meeting all other requirements Passed - No matching NSAID med order in past 45 days No matching medication orders between 06/01/2022 11:03 AM and 07/16/2022 11:03 AM Passed - HGB greater than 10 or HCT greater than 30 in past 12 months HEMOGLOBIN (HGB) Date Value Ref Range Status 09/12/2021 11.4 (L) 12.0 - 15.8 g/dL Final HEMATOCRIT (HCT) Date Value Ref Range Status 09/12/2021 37.1 36.0 - 47.0 % Final NTORY COORDINATOR documented in this encounter Plan of Treatment Upcoming Encounters Date Type Department Care Team (Late st Contact Info) Description 08/06/2025 1:30 PM INVENTORY COORDINATOR [facility] - Pulmonology & Sleep Medicine [facility] #[address] [place] [address] Rosendo Krishnamurthy MD #[address] [place] [address] 08/30/2025 1:00 PM INVENTORY COORDINATOR Office Visit [facility] Medical [facility] - Family [facility] #[address] [place] [address] Peyman Mackey MD #[address] [address] documented as of this encounter Visit Diagnoses Not on filedocumented in this encounter Additional Health Concerns Assessment Noted Time PHQ-9 Depression Total Score: 0 02/14/20 2:00 PM CDT documented as of this encounter Care Teams Position Classification Specialist Relationship Specialty Start Date End Date Peyman Mackey MD #[address] [address] PCP - General Family Medicine 11/02/19 Diego Crain MD Consulting Physician Orthopaedic Sports Medicine 03/10/19 Ida Mejia PAC [address] [place] [address] Nurse Practitioner Orthopaedic Surgery 05/08/19 Herrera Payne MD #[address] [id number] Consulting Physician Colon and Rectal Surgery 03/24/24 Rosendo Krishnamurthy MD #[address] [place] [address] Consulting Physician Pulmonary Disease 04/13/25 documented as of this encounter
--- OUTSIDE RECORDS SUMMARY | 2025-07-17 13:08 | XMS_ITS | Encounter Summary ---
Author Organization [facility] Address [address] [place] [address] Phone Care Team Providers Care Tar Heat Exchanger Cleaner Name Role Phone Diego Crain MD Unavailable [phone] Ida Mejia [facility] Unavailable [phone] Peyman Mackey MD Primary Care Provider [phone] Herrera Payne MD Unavailable Rosendo Krishnamurthy MD Unavailable Reason for Visit * Reason Comments Medication Refill Encounter Details Date Type Department Care Team (Late st Contact Info) Description 08/01/2023 [facility]ill [facility] [address] [place] [address] Peyman Mackey MD [address] [address] Medication Refill Social History Tobacco Use Types [...] on file Legal Sex Female 3:29 PM GAME WARDEN Gender Identity Female 06/19/2023 12:12 AM GAME WARDEN Sexual Orientation Straight 06/19/2023 12 :12 AM GAME WARDEN documented as of this encounter Miscellaneous Notes * Telephone Encounter - Kerline Ashley RN - 08/01/2023 2:44 PM GAME WARDEN PDMP/MEDD: gabapentin 06-28-23, 30 days tramadol 06-28-23, 30 days Medication failed the protocol, provider to review and approve the medication order if appropriate. Requested Prescriptions Pending Prescriptions Disp Refills gabapentin (NEURONTIN) 100 MG Capsule [Pharmacy Med Name: Gabapentin 100 MG Oral Capsule] 60 Capsule 0 Sig: TAKE 1 CAPSULE BY MOUTH TWICE DAILY NEEDED Not Delegated - Anticonvulsants Excluding Benzodiazepines Protocol Failed - 08/01/2023 10:35 AM Failed - This refill cannot be delegated Passed - Visit with relevant provider in past 12 months or upcoming 90 days Recent Visits Date Type Provider Dept 11/05/22 Office Visit Peyman Mackey MD [facility] 08/19/22 Telemedicine Peyman Mackey MD [facility] Showing [...] Delegated - Opioid Agonists Protocol Failed - 08/01/2023 10:35 AM Failed - This refill cannot be delegated Passed - Visit with relevant provider in past 12 months or upcoming 90 days Recent Visits Date Type Provider Dept 11/05/22 Office Visit Peyman Mackey MD [facility] 08/19/22 Telemedicine Peyman Mackey MD [facility] Showing recent visits within past 365 days and meeting all other requirements Future Appointments Date Type Provider Dept 09/30/23 Appointment Peyman Mackey MD [facility] Showing future appointments within next 90 days and meeting all other requirements WARDEN documented in this encounter Plan of Treatment Upcoming Encounters Date Type Department Care Team (Late st Contact Info) Description 08/06/2025 1:30 PM GAME WARDEN [facility] [place] [address] [place] [address] Rosendo Krishnamurthy MD [address] [place] [address] 08/30/2025 1:00 PM GAME WARDEN Office Visit [facility] Medical [facility] Family Medicine - [place] [address] [place] [address] Peyman Mackey MD #[address] [address] documented as of this encounter Visit Diagnoses Diagnosis Chronic pain syndrome documented in this encounter Additional Health Concerns Assessment Noted Time PHQ-9 Depression Total Score: 16 023 2:01 PM CDT documented as of this encounter Care Teams Tar Heat Exchanger Cleaner Relationship Specialty Start Date End Date Peyman Mackey MD [address] [address] PCP - General Family Medicine 11/02/19 Diego Crain MD Consulting Physician Orthopaedic Sports Medicine 03/10/19 Ida Mejia PAC [address] [place] [address] Nurse Practitioner Orthopaedic Surgery 05/08/19 Herrera Payne MD #[address] [address] Consulting Physician Colon and Rectal Surgery 03/24/24 Rosendo Krishnamurthy MD [address] [place] [address] Consulting Physician Pulmonary Disease 04/13/25 documented as of this encounter
--- OUTSIDE RECORDS SUMMARY | 2025-07-17 13:08 | XMS_ITS | Encounter Summary ---
Author Organization [facility] Address [address] [place] [address] Phone Care Team Providers Care Asbestos Worker Helper Name Role Phone Diego Crain MD Unavailable [phone] Ida Mejia [facility] Unavailable [phone] Peyman Mackey MD Primary Care Provider [phone] Herrera Payne MD Unavailable Rosendo Krishnamurthy MD Unavailable Reason for Visit * Reason Comments Medication Refill Encounter Details Date Type Department Care Team (Late st Contact Info) Description 10/18/2020 [facility]ill [facility] [address] [place] [address] Andreas Brown MD [address] [place] [address] Medication Refill Social History Tobacco Use Types Packs/Day Years Used Date Smoking Tobacco: Every Day Cigarettes 0.5 46.4 Started: 03/10/1979 Smokeless Tobacco: Never Alcohol Use Standard Drinks/Week [...] on file Legal Sex Female 3:29 PM NUTRITION INTERN Gender Identity Female 06/19/2023 12:12 AM NUTRITION INTERN Sexual Orientation Straight 06/19/2023 12 :12 AM NUTRITION INTERN documented as of this encounter Miscellaneous Notes * Telephone Encounter - Tere Dallas RN - 10/18/2020 8:25 AM CDT Routing to [place] [employer] Ac[employer] sweet briar. documented in this encounter Plan of Treatment Upcoming Encounters Date Type Department Care Team (Late st Contact Info) Description 08/06/2025 1:30 PM NUTRITION INTERN [facility] [address] [place] [address] Rosendo Krishnamurthy MD [address] [place] [address] 08/30/2025 1:00 PM NUTRITION INTERN Office Visit [facility] - [place] [address] [place] [address] Peyman Mackey MD #[address] [address] documented as of this encounter Visit Diagnoses Not on filedocumented in this encounter Additional Health Concerns Assessment Noted Time PHQ-9 Depression Total Score: 0 02/14/20 20 2:00 PM CDT documented as of this encounter Care Teams Asbestos Worker Helper Relationship Specialty Start Date End Date Peyman Mackey MD #[address] [address] PCP - General Family Medicine 11/02/19 Diego Crain MD Consulting Physician Orthopaedic Sports Medicine 03/10/19 Ida Mejia PAC [address] [place] [address] Nurse Practitioner Orthopaedic Surgery 05/08/19 Herrera Payne MD #[address] [address] Consulting Physician Colon and Rectal Surgery 03/24/24 Rosendo Krishnamurthy MD [address] [place] [address] Consulting Physician Pulmonary Disease 04/13/25 documented as of this encounter
--- OUTSIDE RECORDS SUMMARY | 2025-07-17 13:08 | XMS_ITS | Encounter Summary ---
Author Organization [facility] Address [address] [place] [address] Phone Care Team Providers Care Aerial Applicator Pilot Name Role Phone Diego Crain MD Unavailable Ida Mejia [facility] Unavailable [phone] Peyman Mackey MD Primary Care Provider [phone] Herrera Payne MD Unavailable Rosendo Krishnamurthy MD Unavailable Reason for Visit * Reason Comments Medication Refill Encounter Details Date Type Department Care Team (Late st Contact Info) Description 05/27/2023 Refill [facility] [address] [place] [address] Peyman Mackey MD #[address] [address] Medication Refill Social History Tobacco Use Types [...] on file Legal Sex Female 3:29 PM LEAD NETWORK ARCHITECT Gender Identity Female 06/19/2023 12:12 AM LEAD NETWORK ARCHITECT Sexual Orientation Straight 06/19/2023 12 :12 AM LEAD NETWORK ARCHITECT documented as of this encounter Miscellaneous Notes * Telephone Encounter - Peyman Mackey MD - 05/27/2023 2:46 PM CDT Let her know I will refill this, but she can no longer take the Tizanidine muscle relaxer since sheis on a benzo & a narcotic (holy fly). I have removed the Tizanidine from her med list toprevent auto refill requests. Thanks! * Telephone Encounter - Kerline Ashley RN - 05/27/2023 1:10 PM CDT Per PDMP, gabapentin and tramadol both dispensed 04-28-23 as 30-day supplies Medication failed the protocol, provider to review and approve the medication order if appropriate. Requested Prescriptions Pending Prescriptions Disp Refills traMADol (ULTRAM) 50 MG Tablet [Pharmacy Med Name: traMADol HCl 50 MG Oral Tablet] 60 Tablet 0 Sig: TAKE 1 TABLET BY MOUTH TWICE DAILY NEEDED FOR MODERATE OR MORE SEVERE PAIN Not Delegated - Opioid Agonists Protocol Failed - 05/27/2023 10:25 AM Failed - This refill cannot be [...] Date Type Provider Dept 07/13/23 Appointment Peyman Maceky MD [facility] Showing future appointments within next 90 days and meeting all other requirements gabapentin (NEURONTIN) 100 MG Capsule [Pharmacy Med Name: Gabapentin 100 MG Oral Capsule] 60 Capsule 0 Sig: TAKE 1 CAPSULE BY MOUTH TWICE DAILY NEEDED Not Delegated - Anticonvulsants Excluding Benzodiazepines Protocol Failed - 05/27/2023 10:25 AM Failed - This refill cannot be [...] st Contact Info) Description 08/06/2025 1:30 PM LEAD NETWORK ARCHITECT Office Visit [facility] - Pulmonology & Sleep Medicine [facility] [address] [place] [address] Rosendo Krishnamurthy MD [address] [place] [address] 08/30/2025 1:00 PM LEAD NETWORK ARCHITECT Office Visit [facility] Medical [facility] - Family Medicine - [place] [address] [place] [address] Peyman Mackey MD #[address] [address] documented as of this encounter Visit Diagnoses Diagnosis Chronic pain syndrome documented in this encounter Additional Health Concerns Assessment Noted Time PHQ-9 Depression Total Score: 16 023 2:01 PM CDT documented as of this encounter Care Teams Aerial Applicator Pilot Relationship Specialty Start Date End Date Peyman Mackey MD [address]2 [facility] [address] [place] [address] PCP - General Family Medicine 11/02/19 Diego Crain MD Consulting Physician Orthopaedic Sports Medicine 03/10/19 Ida Mejia PAC [address] [place] [address] Nurse Practitioner Orthopaedic Surgery 05/08/19 Herrera Payne MD [address]2 [facility] [address] [place] [address] Consulting Physician Colon and Rectal Surgery 03/24/24 Rosendo Krishnamurthy MD [address] [place] [address] Consulting Physician Pulmonary Disease 04/13/25 documented as of this encounter
--- OUTSIDE RECORDS SUMMARY | 2025-07-17 13:08 | XMS_ITS | Encounter Summary ---
Author Organization [facility] Address [address] [place] [address] Phone Care Team Providers Care Audio Technician Name Role Phone Diego Crain MD Unavailable [phone] Ida Mejia [facility] Unavailable [phone] Peyman Mackey MD Primary Care Provider [phone] Herrera Payne MD Unavailable Rosendo Krishnamurthy MD Unavailable Reason for Visit * Reason Comments Medication Refill Encounter Details Date Type Department Care Team (Late st Contact Info) Description 02/02/2023 Refill [facility] [address] [place] [address] Peyman Mackey MD [address] [address] Medication Refill Social History Tobacco Use Types [...] on file Legal Sex Female 3:29 PM POLICE SPECIALIST Gender Identity Female 06/19/2023 12:12 AM POLICE SPECIALIST Sexual Orientation Straight 06/19/2023 12 :12 AM POLICE SPECIALIST documented as of this encounter Miscellaneous Notes * Telephone Encounter - Deanne Vincent RN - 02/03/2023 10:16 AM CDT Medication failed the protocol, provider to review and approve the medication order if appropriate. Requested Prescriptions Pending Prescriptions Disp Refills gabapentin (NEURONTIN) 100 MG Capsule [Pharmacy Med Name: Gabapentin 100 MG Oral Capsule] 60 Capsule 0 Sig: TAKE 1 CAPSULE BY MOUTH TWICE DAILY NEEDED Not Delegated - Anticonvulsants Excluding Benzodiazepines Protocol Failed - 02/02/2023 8:47 AM Failed - This refill cannot be [...] MG Oral Tablet] 30 Tablet 0 Sig: Take 1 Tablet by mouth nightly as needed for Muscle spasms. Not Delegated - Muscle Relaxants Protocol Failed - 02/02/2023 8:47 AM Failed - This refill cannot be delegated Failed - ALT less than 90 and AST less than 55 on record in past 12 months SGOT (AST) Date Value Ref Range Status 04/11/2021 15 <=32 U/L Final SGPT (ALT) Date Value Ref Range Status 04/11/2021 20 <=41 U/L Final Passed - Visit with relevant provider [...] st Contact Info) Description 08/06/2025 1:30 PM POLICE SPECIALIST Office Visit [facility] - Pulmonology & Sleep Medicine [facility] [address] [place] [address] Rosendo Krishnamurthy MD [address] [place] [address] 08/30/2025 1:00 PM POLICE SPECIALIST Office Visit [facility] Medical [facility] - Family Medicine - [place] #[address] [place] [address] Peyman Mackey MD #[address] [address] documented as of this encounter Visit Diagnoses Diagnosis Right leg paresthesias Disturbance of skin sensation documented in this encounter Additional Health Concerns Assessment Noted Time PHQ-9 Depression Total Score: 16 023 2:01 PM CDT documented as of this encounter Care Teams Audio Technician Relationship Specialty Start Date End Date Peyman Mackey MD #2 [facility] [address] [place] [address] PCP - General Family Medicine 11/02/19 Diego Crain MD Consulting Physician Orthopaedic Sports Medicine 03/10/19 Ida Mejia PAC [address] [place] [address] Nurse Practitioner Orthopaedic Surgery 05/08/19 Herrera Payne MD #2 [facility] [address] [place] [address] Consulting Physician Colon and Rectal Surgery 03/24/24 Rosendo Krishnamurthy MD [address] [place] [address] Consulting Physician Pulmonary Disease 04/13/25 documented as of this encounter
--- OUTSIDE RECORDS SUMMARY | 2025-07-17 13:08 | XMS_ITS | Clinical Summary ---
Author Organization [facility] Address [address] [place] [address] Care Team Providers Care Molasses And Caramel Operator Name Role Phone Peyman Mackey MD Primary Care Provider [phone] Allergies Active Allergy Reactions Criticality Noted Date Comments Erythromycin Erythromycin Base Unknown Meloxicam Moxifloxacin Penicillins Sucralfate Nausea Only Medications traMADol (ULTRAM) 50 mg tablet Take 1 tablet by oral route 4-6 times PRN for pain 30 tablet 1 7 Active buPROPion SR (WELLBUTRIN SR) 100 mg 12 hr tablet 7 Active amLODIPine (NORVASC) 10 mg tablet amlodipine 10 mg tablet TAKE 1 TABLET BY MOUTH ONCE DAILY Active amLODIPine (NORVASC) 5 mg tablet amlodipine 5 mg tablet Active diclofenac DR (VOLTAREN) 50 mg EC tablet diclofenac sodium 50 mg tablet,delayed release Active DULoxetine DR (CYMBALTA) 30 mg capsule Active ergocalciferol (VITAMIN D) 50,000 unit capsule Take 1.25 mg by mouth once a week 1 Active ferrous sulfate 325 mg (65 mg of elemental iron) tablet Take 1 tablet (325 mg total) by mouth 2 (two) times a day 4 Active omeprazole (PriLOSEC) 20 mg capsule Take 2 capsules (40 mg total) by mouth daily 4 Active topiramate (TOPAMAX) 25 mg tablet Take 0.5 tablets (12.5 mg total) by mouth daily with dinner for 7 days, THEN 1 tablet (25 mg total) daily with dinner for 7 days. Start with 1/2 tablet daily with dinner; then increase to a full 1 tablet at weekly.. 78 tablet 4 Active gabapentin (NEURONTIN) 300 mg capsuleIndicati ons:Neuropathic Pain Take 1 capsule (300 mg total) by mouth 3 (three) times a day 90 capsule 11 5 02/01/20 Active metoprolol XL (TOPROL-XL) 25 mg extended release tablet Take 1 tablet (25 mg total) by mouth daily 5 Active Active Problems Problem Noted Date Diagnosed Date Acute sinusitis 06/07/2025 Hyperlipidemia 06/07/2025 Smoker 06/07/2025 Pain of right hip 04/26/2025 Pulmonary hypertension 04/13/2025 B12 deficiency 04/28/2024 Iron deficiency anemia 02/17/2024 Obesity (BMI 30-39.9) 02/17/2024 Positive colorectal cancer screening using Colog uard test 02/10/[address] 09/30/2023 Neuropathy 09/30/2023 Lightheadedness 11/05/2022 Noncompliance 11/05/2022 Right leg paresthesias 11/05/2022 Sore throat 08/19/2022 Tooth infection 07/15/2022 Dysphagia 10/28/2021 Depression 10/28/2021 Liver lesion 10/28/2021 Anemia, normocytic normochromic 07/29/2021 Chronic pain syndrome 07/29/2021 Morbid obesity 07/29/2021 Vitamin D deficiency 04/11/2021 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 Dysphagia lusoria 04/14/2020 Lung nodule 03/10/2020 Chronic joint pain 10/30/2019 Anxiety 03/10/2019 Chronic obstructive lung disease 03/10/2019 Gastroesophageal reflux disease 03/10/2019 Nocturnal leg cramps 03/10/2019 Primary hypertension 03/10/2019 Retinal disorder 03/10/2019 Pyelonephritis 09/15/2017 Acute right flank pain 09/15/2017 Urinary tract infection in female 09/15/2017 Aftercare following left hip joint replacement s luis 05/26/2017 Primary osteoarthritis of left hip 03/25/2017 Encounters Date Type Department Care Team Description 07/17/2025 Telephone [facility] Medicine Orthopaedic Surgery [address] [place] [address] Rachell Gray MD 07/12/2025 Telephone [facility] Orthopedics and Sports Medicine [address] [place] [address] [address] [place] [address] Mari Cervantes MA 06/07/2025 11:00 AM CORPORATE COMMUNICATIONS INTERN Office Visit [facility] Orthopedics and Sports Medicine [address] [place] [address] [address] [place] [address] Diego Crain MD Right hip pain (Primary Dx); Primary osteoarthritis of right hip 06/07/2025 7:47 AM CORPORATE COMMUNICATIONS INTERN - 06/07/2025 11:59 PM CORPORATE COMMUNICATIONS INTERN Hospital Encounter [facility] Orthopedics and Sports Medicine [address] [place] [address] [address] [place] [address] Discharge Disposition: Discharge to home or self care from Last 3 Months Surgical History Surgery Date Site/Laterality Comments APPENDECTOMY Appendectomy HIP SURGERY 05/12/2017 Left Family History Medical History Relation Name Comments Cancer Other 1 Family history of Cancer, unknown; Diabetes type II Other 2 Family hist ory of Diabetes mellitus type 2; Arthritis Other 3 Family history of Arthritis; Alcohol abuse Other 4 Family history of Alcoholism; Hypertension Other 5 Family history of Hypertension; Relation Name Status Comments Other 1 Other 2 Other 3 Other 4 Other 5 Social History Tobacco Use Types Packs/Day Years Used Date Smoking Tobacco: Former Cigarettes Smokeless Tobacco: Never Tobacco Cessation:Counseling Given: Not Answered Alcohol Use Standard Drinks/Week Comments No 0 (1 standard drink = 0.6 oz pur e alcohol) Comments No Sex and Gender Information Value Date Recorded Sex Assigned at Not on file Legal Sex Female 12:29 AM CORPORATE COMMUNICATIONS INTERN Gender Identity Not on file Sexual Orientation Not on file Last Filed Vital Signs Vital Sign Reading Time Taken Comments Blood Pressure 153/74 06/07/2025 10:52 AM CORPORATE COMMUNICATIONS INTERN Pulse 60 06/07/2025 10:52 AM CORPORATE COMMUNICATIONS INTERN Temperature 36.5 C (97.7 F) 06/27/2024 8:46 AM CORPORATE COMMUNICATIONS INTERN Respiratory Rate 14 02/12/2022 2:05 PM CDT Oxygen Saturation 95% 02/12/2022 2:05 PM CDT Inhaled Oxygen Concentration - - Weight 97.1 kg (214 lb) 06/07/2025 10:52 AM CORPORATE COMMUNICATIONS INTERN Height 156.2 cm (5' 1.5) 06/07/2025 10:52 AM CS T Body Mass Index 39.78 06/07/2025 10:52 AM CORPORATE COMMUNICATIONS INTERN Plan of Treatment Health Maintenance Due Date Last Done Comments Depression Screening 1960 Hepatitis C Screening 1960 DTaP/Tdap/Td Vaccine (1 - Tdap) 1972 Hepatitis B Screening 1979 Regular Well Visit/Exam 18-64 1979 Pneumococcal vaccine <65 (1 of 2 - PCV) 1980 Zoster Vaccine (1 of 2) 2011 Colon Cancer Screening-Colonoscopy 04/20/20222011 Breast Cancer Screening-Mammogram 01/19/2025 01/20/2024, 01/20/2024, 04/11/2021 Influenza Vaccine (#1) 2025 06/15/2016 Colon Cancer Screening-CT Colonography Discontinued 04/20/2012 Colon Cancer Screening-DNA Stool Discontinued 04/20/20 Colon Cancer Screening-FIT Discontinued 04/20/2012 Colon Cancer Screening-Sigmoidoscopy Discontinued 04/02 Procedures Procedure Name Priority Date/Time Associated Diagnosis Comments XR HIP RIGHT 2 OR 3 VIEWS Schedule Routine, Read Routine (OP Routine) 06/07/2025 10:46 AM CORPORATE COMMUNICATIONS INTERN Right hip pain COLONOSCOPY 04/20/2012 12:00 AM CDT from Last 3 Months or Most Recently Relevant to Health Maintenance Results * XR Hip Right 2 or 3 Views (06/07/2025 10:46 AM CORPORATE COMMUNICATIONS INTERN) Anatomical Region Laterality Modality Lower Extremities, Hip, Pelvis Right D igital Radiography Narrative 06/07/2025 2:04 PM CORPORATE COMMUNICATIONS INTERN Left total hip arthroplasty in appropriate position with no interval change. Advanced right hip osteoarthritis with [id number] contact, subchondral sclerosis, osteophyte formation us Diego Crain MD IMG XR PROCEDURES Final Result * COLONOSCOPY (04/20/2012 12:00 AM CDT) Anatomical Region Laterality Modality Other Narrative 04/20/2012 12:00 AM CDT Ordered by an unspecified provider. Procedure Note Provider, MD Michelle - 04/20/2012 12:00 AM CDT PROCEDURE REPORT Patient: JOY WILSON Account: [id number] Room No: : 1960 Patient Type: SDS Attend.: Guido Dale M.D. Admit Date: 04/20/2012 Dict.: Guido Dale M.D. Disch. Date:04/20/2012 NAME OF PROCEDURE: Colonoscopy with polypectomy. DATE OF PROCEDURE: 04/20/12. INDICATION: Bleeding per rectum, screening for colon cancer. PRIMARY CARE PHYSICIAN: Dr. Oracio Arroyo. BRIEF HISTORY AND PHYSICAL: The patient is a 51-year-old white female.No previous colonoscopy. Patient had recurrent episodes of bright red bloodper rectum. Colonoscopy is being done for evaluation. DESCRIPTION OF PROCEDURE: Sedation was provided by anesthesia service.The procedure of colonoscopy including indications and possible complicationsof bleeding, infection and perforation requiring surgery were discussed withthe patient and consent was obtained. Rectal exam prior to colonoscopyshowed medium sized external hemorrhoids. The scope was introduced into therectum and advanced all the way to cecum which was identified by the ileocecalvalve and the appendiceal orifice. The cecum, ascending colon, transverse colonand descending colon were unremarkable. The sigmoid colon was unremarkable.In the rectum, there were several small diminutive polyps. Four of those were cauterized in place with heat application and two more prominent sessile 4mm size removed by hot biopsy forceps. Retroflexion in the rectum showedsmall to medium sized internal hemorrhoids. IMPRESSION: 1. Internal and external hemorrhoids. 2. Few small diminutive polyps in the rectum cauterized and removedby hot biopsy forceps. RECOMMENDATIONS: 1. Maintain high fiber diet. 2. Follow up pathology report. Susu Dubose/ TD: 04/21/2012 14:23 CC: Dr. Franklin Arroyo Authenticated and Edited by Guido Dale MD On 05/11/12 9:51:04 PM us Historical Provider ENDOSCOPY PROCEDURES Radha l Result from Last 3 Months or Most Recently Relevant to Health Maintenance Insurance [employer] [facility] [employer] [facility] Member Subscriber Plan / Payer (Ef fective 2025-Present) Name:Jose Joy Loki Relation to Subscriber:Self Name:Joy Wilson Loki Payer ID:[id number] (NAIC) Group ID:Not on file Type:MEDICAID RISK OTHER Address: [facility] [id number] [place] [id number] [employer] [facility] Care Teams Molasses And Caramel Operator Relationship Specialty Start Date End Date Peyman Mackey MD [address] [place] [id number] PCP - General 08/04/21
--- OUTSIDE RECORDS SUMMARY | 2025-07-17 13:08 | XMS_ITS | Clinical Summary ---
Author Organization [facility] [email or web address] Address [address] [place] [address] Care Team Providers Care Judicial Registrar Name Role Phone Andreas Brown MD Primary Care Provider [phone] Source Comments [facility] [email or web address],non-owned Affiliates and Associated Physician Practices is amultiple site organization consisting of ambulatory clinics and hospital sitesin [place], [place], [place] and [place]. This disclosure is being madepursuant to the Care Everywhere program and may not contain all information available regarding this patient. Last updated 18.[facility] [email or web address] Allergies Active Allergy Reactions Criticality Noted Date Comments Penicillins Itching High 04/07/2019 Medications * Be aware that medications may not be up to date on this document. Alwaysverify current medications with the patient. cyclobenzaprine (FLEXERIL) 10 MG tablet Take 1 tablet by mouth nightly as needed for Muscle Spasms 30 tablet 1 9 Active lisinopril-hydr oCHLOROthiazide (PRINZIDE; ZESTORETIC) 10-12.5 MG tablet Take 1 tablet by mouth once daily 3 9 Active amLODIPine (NORVASC) 10 MG tablet Take 10 mg by mouth once daily 3 9 Active raNITIdine (ZANTAC) 300 MG tablet ranitidine hcl 300 mg tabs Active diclofenac sodium EC (VOLTAREN) 75 MG tablet Take 1 tablet by mouth 2 times daily as needed (pain) 60 tablet 1 9 Active Active Problems No known active problems Social History Tobacco Use Types Packs/Day Years Used Date Smoking Tobacco: Every Day Cigarettes Smokeless Tobacco: Never Tobacco Cessation:Ready to Q uit: Yes; Counseling Given: Yes Alcohol Use Standard Drinks/Week Comments Never 0 (1 standard drink = 0.6 oz pur e alcohol) AUDIT-C Answer Date Recorded Frequency of Alcohol Consumption Never 06/09/2019 Average Number of Drinks Not on file 019 Frequency of Binge Drinking Not on file 03/2019 Comments Unknown Sex and Gender Information Value Date Recorded Sex Assigned at Not on file Legal Sex Female 6:02 AM RESEARCH MANUFACTURING OPERATOR Gender Identity Not on file Sexual Orientation Not on file Last Filed Vital Signs Vital Sign Reading Time Taken Comments Blood Pressure - - Pulse - - Temperature - - Respiratory Rate - - Oxygen Saturation - - Inhaled Oxygen Concentration - - Weight 99.8 kg (220 lb) 06/09/2019 10:39 AM RESEARCH MANUFACTURING OPERATOR Height 162.6 cm (5' 4) 06/09/2019 10:39 AM RESEARCH MANUFACTURING OPERATOR Body Mass Index 37.76 06/09/2019 10:39 AM RESEARCH MANUFACTURING OPERATOR Plan of Treatment Health Maintenance Due Date Last Done Comments COLOGUARD (AGES 45-75) - COL ON CA SCREENING 1961 COLON MONITORING 1961 COLONOSCOPY - COLON CA SCREENING 1961 CT COLONOGRAPHY - COLON CA SCREENING 1961 Colorectal Cancer Screening 1961 FIT - COLON CA SCREENING 1961 FLEX SIG - COLON CA SCREENING 1961 LIPID TESTING 1961 MAMMOGRAM 1961 HIV SCREENING 1976 HEPATITIS C SCREENING 07/31/1979 DTAP/TDAP/TD VACCINES (1 - Tdap) 1980 PNEUMOCOCCAL VACCINE 50+ (1 of 1 - PCV) 2011 ZOSTER VACCINE (1 of 2) 2011 SCREENING FOR DIABETES 04/07/2019 DEPRESSION SCREENING 08/02/2024 COVID-19 VACCINE (1 - 2024-2 6 season) 2025 INFLUENZA VACCINE (#1) 2025 06/15/2016 Respiratory Syncytial Virus (RSV) Vaccine Pt: or over 60 yrs (1 - 1-dose 75+ series) 2036 HEPATITIS B VACCINE Aged Out No longe r eligible based on patient's age to complete this topic HIB VACCINE Aged Out No longer eligi ble based on patient's age to complete this topic HPV VACCINE Aged Out No longer eligi ble based on patient's age to complete this topic MENINGOCOCCAL (Group B) VACC INE SHARED DECISION-MAKING Aged Out No longer eligibl e based on patient's age to complete this topic MENINGOCOCCAL GROUPS A/C/Y/W VACCINE Aged Out No longer eligible b ased on patient's age to complete this topic Goals Goal Patient Goal Type Associated Problems Recent Progress Patient-Stated? Author Mobility General No Samantha Valladares RN Note: Expected end date: 08/02/2019 The goal is to maintain or improve your mobility at the optimum level for you. Interventions: Mobility General No Samantha Valladares RN Note: Expected end date: 08/02/2019 The goal is to maintain or improve your mobility at the optimum level for you. Interventions: Insurance [facility] Care Teams Judicial Registrar Relationship Specialty Start Date End Date Andreas Brown MD PCP - General 04/07/19
--- OUTSIDE RECORDS SUMMARY | 2025-07-17 13:08 | XMS_ITS | Encounter Summary ---
Author Organization [facility] Address [address] [place] [address] Care Team Providers Care Dough Panner Name Role Phone Peyman Mackey MD Primary Care Provider [phone] Encounter Details Date Type Department Care Team (Late st Contact Info) Description 07/12/2025 Telephone [facility] Medical Group Orthopedics and Sports Medicine [address] [facility] [address] [address] Mari Cervantes MA Social History Tobacco Use Types Packs/Day Years Used Date Smoking Tobacco: Former Cigarettes Smokeless Tobacco: Never Alcohol Use Standard Drinks/Week Comments No 0 (1 standard drink = 0.6 oz pur e alcohol) Comments No Sex and Gender Information Value Date Recorded Sex Assigned at Not on file Legal Sex Female 12:29 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
--- OUTSIDE RECORDS SUMMARY | 2025-07-17 13:08 | XMS_ITS | Encounter Summary ---
Author Organization [facility] Address [address] [place] [address] Phone Care Team Providers Care Toolroom Checker Name Role Phone Diego Crain MD Unavailable Ida Mejia [facility] Unavailable [phone] Peyman Mackey MD Primary Care Provider [phone] Herrera Payne MD Unavailable Rosendo Krishnamurthy MD Unavailable Reason for Visit * Reason Comments Medication Refill Encounter Details Date Type Department Care Team (Late st Contact Info) Description 01/15/2024 [facility]ill [facility] - [facility] [address] [place] [address] Peyman Mackey MD [address] [address] Medication Refill Social History Tobacco Use Types Packs/Day Years Used Date Smoking Tobacco: Former Cigarettes 0.5 41.2 0 03/10/1979 - 05/14/2020 Smokeless Tobacco: Never Comments:Cigarettes..need to quit. I quit on May 2020 Alcohol Use Standard Drinks/Week Comments Not Currently 0 (1 standard drink = 0.6 oz pur e alcohol) [facility] Utilities Answer Date Recorded In the past [...] often do you attend chur ch or worship services? 1 to 4 times per year 09/27/2023 Do you belong to any clubs o r organizations such as bahai groups, unions, fraternal or athletic groups, or [...] Score - Questions 1-9 16 04/0 12/2022 [facility] - Occupational [...] on file Legal Sex Female 3:29 PM RIVETER PORTABLE MACHINE Gender Identity Female 06/19/2023 12:12 AM RIVETER PORTABLE MACHINE Sexual Orientation Straight 06/19/2023 12 :12 AM RIVETER PORTABLE MACHINE documented as of this encounter Miscellaneous Notes * Telephone Encounter - Tari Owens RN - 01/17/2024 8:16 AM CDT PDMP Tramadol 12/19/23 Medication failed the protocol, provider to review and approve the medication order if appropriate. Requested Prescriptions Pending Prescriptions Disp Refills amLODIPine (NORVASC) 10 MG Tablet [Pharmacy Med Name: amLODIPine Besylate 10 MG Oral Tablet] 90 Tablet 0 Sig: Take 1 tablet by mouth once daily Calcium-Channel Blockers Protocol Passed - 01/15/2024 10:02 AM Passed - BP on record in [...] requirements Future Appointments Date Type Provider Dept 02/17/24 Appointment Peyman Mackey MD [facility] Showing future appointments within next 90 days and meeting all other requirements diclofenac (VOLTAREN) 75 MG Tablet Delayed Response [Pharmacy Med Name: Diclofenac Sodium 75 MG Oral Tablet Delayed Release] 180 Tablet 0 Sig: Take 1 tablet by mouth twice daily NSAIDs Protocol Failed - 01/15/2024 10:02 AM Failed - Normal serum creatinine in [...] requirements Future Appointments Date Type Provider Dept 02/17/24 Appointment Peyman Mackey MD [facility] Showing future appointments within next 90 days and meeting all other requirements Passed - No matching NSAID med order in past 45 days No matching medication orders between 12/03/2023 8:17 AM and 01/17/2024 8:17 AM traMADol (ULTRAM) 50 MG Tablet [Pharmacy Med Name: traMADol HCl 50 MG Oral Tablet] 60 Tablet 0 Sig: TAKE 1 TABLET BY MOUTH 2 TIMES A DAY NEEDED FOR MODERATE OR MORE SEVERE PAIN. Not Delegated - Opioid Agonists Protocol Failed - 01/15/2024 10:02 AM Failed - This refill cannot be delegated Passed - Visit with relevant provider in past 12 months or upcoming 90 days Recent Visits Date Type Provider Dept 09/30/23 Office Visit Peyman Mackey MD [facility] Showing recent visits within past 365 days and meeting all other requirements Future Appointments Date Type Provider Dept 02/17/24 Appointment Peyman Mackey MD [facility] Showing future appointments within next 90 days and meeting all other requirements buPROPion SR (WELLBUTRIN SR) 150 MG TABLET SR 12 HR [Pharmacy Med Name: buPROPion HCl ER (SR) 150 MG Oral Tablet Extended Release 12 Hour] 180 Tablet 0 Sig: Take 1 tablet by mouth twice daily Bupropion (6 Month Refill Only) Protocol Failed - 01/15/2024 10:02 AM Failed - Has an encounter in [...] requirements Future Appointments Date Type Provider Dept 02/17/24 Appointment Peyman Mackey MD [facility] Showing future appointments within next 90 days and meeting all other requirements Passed - Patient has established therapy with Bupropion for at least 6 months ezetimibe (ZETIA) 10 MG Tablet [Pharmacy Med Name: Ezetimibe 10 MG Oral Tablet] 90 Tablet 0 Sig: Take 1 tablet by mouth once daily Intestinal Cholesterol Absorption Inhibitors Protocol Failed - 01/15/2024 10:02 AM Failed - Lipid panel in past [...] requirements Future Appointments Date Type Provider Dept 02/17/24 Appointment Peyman Mackey MD [facility] Showing future appointments within next 90 days and meeting all other requirements documented in this encounter Plan of Treatment Upcoming Encounters Date Type Department Care Team (Late st Contact Info) Description 08/06/2025 1:30 PM RIVETER PORTABLE MACHINE Office Visit [facility] Medical [facility] - Pulmonology & Sleep Medicine [facility] [address] [place] [address] Rosendo Krishnamurthy MD [address] [place] [address] 08/30/2025 1:00 PM RIVETER PORTABLE MACHINE Office Visit [facility] Family [facility] [address] [place] [address] Peyman Mackey MD [address] [address] documented as of this encounter Visit Diagnoses Diagnosis Chronic pain syndrome documented in this encounter Additional Health Concerns Assessment Noted Time PHQ-9 Depression Total Score: 16 023 2:01 PM CDT documented as of this encounter Care Teams Toolroom Checker Relationship Specialty Start Date End Date Peyman Mackey MD [address] [address] PCP - General Family Medicine 11/02/19 Diego Crain MD Consulting Physician Orthopaedic Sports Medicine 03/10/19 Ida Mejia PAC [address] [place] [phone] Nurse Practitioner Orthopaedic Surgery 05/08/19 Herrera Payne MD [address] [address] Consulting Physician Colon and Rectal Surgery 03/24/24 Rosendo Krishnamurthy MD [address] [place] [address] Consulting Physician Pulmonary Disease 04/13/25 documented as of this encounter
--- OUTSIDE RECORDS SUMMARY | 2025-07-17 13:08 | XMS_ITS | Encounter Summary ---
Author Organization [facility] Address [address] [place] [address] Phone Care Team Providers Care Lease Attendant Name Role Phone Diego Crain MD Unavailable [phone] Ida Mejia PAC Unavailable [phone] Peyman Mackey MD Primary Care Provider [phone] Herrera Payne MD Unavailable Rosendo Krishnamurthy MD Unavailable Reason for Visit * Reason Comments Medication Refill Encounter Details Date Type Department Care Team (Late st Contact Info) Description 01/17/2021 Refill [facility] [address] [place] [address] Peyman Mackey MD [address] [address] Medication Refill Social History Tobacco Use Types [...] on file Legal Sex Female 3:29 PM INFUSION RN Gender Identity Female 06/19/2023 12:12 AM INFUSION RN Sexual Orientation Straight 06/19/2023 12 :12 AM INFUSION RN documented as of this encounter Miscellaneous Notes * Telephone Encounter - Tari Owens RN - 01/17/2021 2:08 PM CDT Medication failed the protocol, provider to review and approve the medication order if appropriate. Requested Prescriptions Pending Prescriptions Disp Refills amLODIPine (NORVASC) 10 MG Tablet [Pharmacy Med Name: amLODIPine Besylate 10 MG Oral Tablet] 90 Tablet 1 Sig: Take 1 tablet by mouth once daily Calcium-Channel Blockers Protocol Passed - 01/17/2021 1:07 PM Passed - BP on record in the past year Clinician-entered: BP Readings from Last 3 Encounters: 02/14/20 140/82 03/10/19 130/78 Patient-entered: No data recorded Passed - Visit with relevant provider in past 12 months or upcoming 90 days Recent Visits Date Type Provider Dept 08/28/20 Telemedicine Andreas Becker APN, [facility] [place] 02/14/20 Office Visit Andreas Becker APN, [facility] [place] Showing recent visits within past 365 [...] (6 Month Refill Only) Protocol Failed - 01/17/2021 1:07 PM Failed - Has an encounter in the past 6 months with a depression or anxiety visit diagnosis Passed - Visit with relevant provider in past 6 months or upcoming 90 days Recent Visits Date Type Provider Dept 08/28/20 Telemedicine Andreas Becker APN, ACQUISITION CONSULTANT [facility] Showing recent visits within past 182 days [...] Take 1 tablet by mouth twice daily [facility] Analgesics: NSAIDS Passed - 01/17/2021 1:07 PM Passed - Valid encounter within last 6 months Past Office Visits Recent Outpatient Visits 4 months ago Dental infection [facility] - Andreas Fuller APN, CNP 11 months ago COPD with acute exacerbation (HCC) [facility] - Andreas Fuller APN, CNP 1 year ago Bronchitis [facility] - Peyman Castillo MD 1 year ago Encounter for health maintenance examination (Adult) [facility] FAMILY [facility] - Andreas Viera MD 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 Showing future appointments within next 90 days with a meds authorizing provider and meeting all other requirements documented in this encounter Plan of Treatment Upcoming Encounters Date Type Department Care Team (Late st Contact Info) Description 08/06/2025 1:30 PM INFUSION RN Office Visit [facility] - Pulmonology & Sleep Medicine - [place] [address] [place] [address] Rosendo Krishnamurthy MD [address] [place] [address] 08/30/2025 1:00 PM INFUSION RN Office Visit [facility] - Family [facility] [address] [place] [address] Peyman Mackey MD [address] [address] documented as of this encounter Visit Diagnoses Not on filedocumented in this encounter Additional Health Concerns Assessment Noted Time PHQ-9 Depression Total Score: 0 02/14/20 20 2:00 PM CDT documented as of this encounter Care Teams Lease Attendant Relationship Specialty Start Date End Date Peyman Mackey MD [address] [address] PCP - General Family Medicine 11/02/19 Diego Crain MD Consulting Physician Orthopaedic Sports Medicine 03/10/19 Ida Mejia PAC [address] [place] [phone] Nurse Practitioner Orthopaedic Surgery 05/08/19 Herrera Payne MD [address] [address] Consulting Physician Colon and Rectal Surgery 03/24/24 Rosendo Krishnamurthy MD [address] [place] [phone] Consulting Physician Pulmonary Disease 04/13/25 documented as of this encounter
--- OUTSIDE RECORDS SUMMARY | 2025-07-17 13:08 | XMS_ITS | Encounter Summary ---
Author Organization [facility] Address [address] [place] [address] Phone Care Team Providers Care Advertising Internship Name Role Phone Diego Crain MD Unavailable Ida Mejia PAC Unavailable [phone] Peyman Mackey MD Primary Care Provider [phone] Herrera Payne MD Unavailable Rosendo Krishnamurthy MD Unavailable Reason for Visit * Reason Comments Medication Refill Encounter Details Date Type Department Care Team (Late st Contact Info) Description 10/18/2020 Refill [facility] [address] [place] [address] Peyman Mackey MD [address] [address] Medication Refill Social History Tobacco Use Types [...] on file Legal 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 Requested Prescriptions Pending Prescriptions Disp Refills diclofenac (VOLTAREN) 75 MG Tablet Delayed Response [Pharmacy Med Name: Diclofenac Sodium 75 MG Oral Tablet Delayed Release] 180 Tablet 0 Sig: Take 1 tablet by mouth twice daily Analgesics: NSAIDS Passed - 10/18/2020 8:17 AM Passed - Valid encounter within last 6 months Past Office Visits Recent Outpatient Visits 1 month ago Dental infection [facility] Medical [facility] Family [facility] - Andreas Fuller APN, CNP 8 months ago COPD with acute exacerbation (HCC) [facility] - Andreas Fuller APN, CNP 11 months ago Bronchitis [facility] - Peyman Castillo MD 1 year ago Encounter for health maintenance examination (Adult) [facility]ICAL [facility] FAMILY [facility] - Andreas Viera MD 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 Showing future appointments within next 90 days with a meds authorizing provider and meeting all other requirements buPROPion SR (WELLBUTRIN SR) 150 MG TABLET SR 12 HR [Pharmacy Med Name: buPROPion HCl ER (SR) 150 MG Oral Tablet Extended Release 12 Hour] 180 Tablet 0 Sig: Take 1 tablet by mouth twice daily Not Delegated - Psychiatry: Antidepressants Failed - 10/18/2020 8:17 AM Failed - This refill cannot be delegated Passed - Valid encounter within last 12 months Past Office Visits Recent Outpatient Visits 1 month ago Dental infection [facility] - Andreas Fuller APN, CNP 8 months ago COPD with acute exacerbation (HCC) [facility] - Andreas Fuller APN, CNP 11 months ago Bronchitis [facility] - Peyman Castillo MD 1 year ago Encounter for health maintenance examination (Adult) [facility] - Andreas Viera MD Upcoming Appointments CHAINSTITCH SEAT JOINER - Recent and Past Visits Recent Visits Date Type Provider Dept 08/28/20 Telemedicine Andreas Becker APN, CNP [facility] 02/14/20 Office Visit Andreas Becker APN, SCOTT [facility] 10/30/19 Telemedicine Peyman Mackey MD [facility] Showing recent visits within past 460 days [...] st Contact Info) Description 08/06/2025 1:30 PM BUFFING WHEEL OPERATOR Office Visit [facility] - Pulmonology & Sleep Medicine - [place] [address] [place] [phone] Rosendo Krishnamurthy MD [address] [place] [address] 08/30/2025 1:00 PM BUFFING WHEEL OPERATOR Office Visit [facility] [address] [place] [address] Peyman Mackey MD [address]2 [facility] [address] [place] [address] documented as of this encounter Visit Diagnoses Not on filedocumented in this encounter Additional Health Concerns Assessment Noted Time PHQ-9 Depression Total Score: 0 02/14/20 20 2:00 PM CDT documented as of this encounter Care Teams Advertising Internship Relationship Specialty Start Date End Date Peyman Mackey MD [address]2 [facility] [address] [place] [address] PCP - General Family Medicine 11/02/19 Diego Crain MD Consulting Physician Orthopaedic Sports Medicine 03/10/19 Ida Mejia PAC [address] [place] [phone] Nurse Practitioner Orthopaedic Surgery 05/08/19 Herrera Payne MD [address] [address] Consulting Physician Colon and Rectal Surgery 03/24/24 Rosendo Krishnamurthy MD [address] [place] [address] Consulting Physician Pulmonary Disease 04/13/25 documented as of this encounter
--- OUTSIDE RECORDS SUMMARY | 2025-07-17 13:08 | XMS_ITS | Encounter Summary ---
Author Organization [facility] Address [address] [place] [address] Phone Care Team Providers Care Ball Thread Machine Tender Name Role Phone Diego Crain MD Unavailable [phone] Ida Mejia [facility] Unavailable [phone] Peyman Mackey MD Primary Care Provider [phone] Herrera Payne MD Unavailable Rosendo Krishnamurthy MD Unavailable Reason for Visit * Reason Comments Medication Refill Encounter Details Date Type Department Care Team (Late st Contact Info) Description 03/05/2023 Refill [facility] [address] [place] [address] Peyman Mackey MD [address] [address] Medication Refill Social History Tobacco Use Types [...] on file Legal Sex Female 3:29 PM 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 No / Unsure 02/25/2023 5:31 PM CDT documented as of this encounter Miscellaneous Notes * Telephone Encounter - Tari Owens RN - 03/05/2023 3:25 PM CDT Medication failed the protocol, provider to review and approve the medication order if appropriate. Requested Prescriptions Pending Prescriptions Disp Refills gabapentin (NEURONTIN) 100 MG Capsule [Pharmacy Med Name: Gabapentin 100 MG Oral Capsule] 60 Capsule 0 Sig: TAKE 1 CAPSULE BY MOUTH TWICE DAILY NEEDED Not Delegated - Anticonvulsants Excluding Benzodiazepines Protocol Failed - 03/05/2023 11:06 AM Failed - This refill cannot be [...] st Contact Info) Description 08/06/2025 1:30 PM CORROSION PREVENTION METAL SPRAYER Office Visit [facility] Medical [facility] - Pulmonology & Sleep Medicine [facility] [address] [place] [address] Rosendo Krishnamurthy MD [address] [place] [address] 08/30/2025 1:00 PM CORROSION PREVENTION METAL SPRAYER Office Visit [facility] Medical [facility] - Family [facility] [place] [address] [place] [address] Peyman Mackey MD #[address] [address] documented as of this encounter Visit Diagnoses Not on filedocumented in this encounter Additional Health Concerns Assessment Noted Time PHQ-9 Depression Total Score: 16 023 2:01 PM CDT documented as of this encounter Care Teams Ball Thread Machine Tender Relationship Specialty Start Date End Date Peyman Mackey MD #[address] [address] PCP - General Family Medicine 11/02/19 Diego Crain MD Consulting Physician Orthopaedic Sports Medicine 03/10/19 Ida Mejia PAC [address] [place] [phone] Nurse Practitioner Orthopaedic Surgery 05/08/19 Herrera Payne MD #2 [facility] [address] [place] [address] Consulting Physician Colon and Rectal Surgery 03/24/24 Rosendo Krishnamurthy MD #2 [place] [address] Consulting Physician Pulmonary Disease 04/13/25 documented as of this encounter
--- OUTSIDE RECORDS SUMMARY | 2025-07-17 13:09 | XMS_ITS | Encounter Summary ---
Author Organization [facility] Address [address] [place] [address] Phone Care Team Providers Care Skoog Patching Machine Operator Name Role Phone Diego Crain MD Unavailable Ida Mejia [facility] Unavailable [phone] Peyman Mackey MD Primary Care Provider [phone] Herrera Payne MD Unavailable Rosendo Krishnamurthy MD Unavailable Reason for Visit * Reason Comments Medication Refill Encounter Details Date Type Department Care Team (Late st Contact Info) Description 01/16/2022 Refill [facility] #[address] [place] [address] Peyman Mackey MD #[address] [address] Medication Refill Social History Tobacco Use Types [...] on file Legal Sex Female 3:29 PM RIBBER Gender Identity Female 06/19/2023 12:12 AM RIBBER Sexual Orientation Straight 06/19/2023 12 :12 AM RIBBER documented as of this encounter Miscellaneous Notes * Telephone Encounter - Tari Owens RN - 01/19/2022 8:00 AM CDT Medication warning Per nursing clinical judgement, provider to review and approve the medication(s) order(s) if appropriate. Requested Prescriptions Pending Prescriptions Disp Refills diclofenac (VOLTAREN) 75 MG Tablet Delayed Response [Pharmacy Med Name: Diclofenac Sodium 75 MG Oral Tablet Delayed Release] 180 Tablet 0 Sig: Take 1 tablet by mouth twice daily NSAIDs Protocol Passed - 01/16/2022 4:22 PM Passed - Normal serum creatinine in past 12 months CREATININE - POCT Date Value Ref Range Status 10/03/2021 0.7 0.6 - 1.3 mg/dL Final Passed - Visit with relevant provider in past 12 months or upcoming 90 days Recent Visits Date Type Provider Dept 10/28/21 Office Visit Peyman Mackey MD [facility] 07/29/21 Office Visit Peyman Mackey MD [facility] 03/28/21 Office Visit Andreas Becker APRN, ALCOHOL RUBBER [facility] Showing recent visits within past 365 days and meeting all other requirements Future Appointments Date Type Provider Dept 02/04/22 Appointment Peyman Mackey MD [facility] Showing future appointments within next 90 days and meeting all other requirements Passed - No matching NSAID med order in past 45 days No matching medication orders between 12/05/2021 8:00 AM and 01/19/2022 8:00 AM Passed - AST less than 55 or ALT less than 90 in past 12 months SGOT (AST) Date Value Ref Range Status 04/11/2021 15 <=32 U/L Final SGPT (ALT) Date Value Ref Range Status 04/11/2021 20 <=41 U/L Final Passed - HGB greater than 10 or HCT greater than 30 in past 12 months HEMOGLOBIN (HGB) Date Value Ref Range Status 09/12/2021 11.4 (L) 12.0 - 15.8 g/dL Final HEMATOCRIT (HCT) Date Value Ref Range Status 09/12/2021 37.1 36.0 - 47.0 % Final documented in this encounter Plan of Treatment Upcoming Encounters Date Type Department Care Team (Late st Contact Info) Description 08/06/2025 1:30 PM RIBBER [facility] - Pulmonology & Sleep Medicine - [place] #[address] [place] [address] Rosendo Krishnamurthy MD [address] [place] [address] 08/30/2025 1:00 PM RIBBER Office Visit [facility] Medical [facility] - Family Medicine - [place] [address] [place] [address] Peyman Mackey MD #[address] [address] documented as of this encounter Visit Diagnoses Not on filedocumented in this encounter Additional Health Concerns Assessment Noted Time PHQ-9 Depression Total Score: 0 02/14/20 2:00 PM CDT documented as of this encounter Care Teams Skoog Patching Machine Operator Relationship Specialty Start Date End Date Peyman Mackey MD #[address] [address] PCP - General Family Medicine 11/02/19 Diego Crain MD Consulting Physician Orthopaedic Sports Medicine 03/10/19 Ida Mejia PAC [address] [place] [phone] Nurse Practitioner Orthopaedic Surgery 05/08/19 Herrera Payne MD #[address] [address] Consulting Physician Colon and Rectal Surgery 03/24/24 Rosendo Krishnamurthy MD [address] [place] [address] Consulting Physician Pulmonary Disease 04/13/25 documented as of this encounter
--- OUTSIDE RECORDS SUMMARY | 2025-07-17 13:09 | XMS_ITS | Encounter Summary ---
Author Organization [facility] Address [address] [place] [address] Phone Care Team Providers Care Varnish Mixer Name Role Phone Diego Crain MD Unavailable Ida Mejia PAC Unavailable [phone] Peyman Mackey MD Primary Care Provider [phone] Herrera Payne MD Unavailable Rosendo Krishnamurthy MD Unavailable Reason for Visit * Reason Comments Medication Refill Encounter Details Date Type Department Care Team (Late st Contact Info) Description 07/18/2021 Refill [facility] [address] [place] [address] Andreas Becker, RIM TURNING MACHINE OPERATOR, POST GRADUATE INTERN #[address] [address] Medication Refill Social History Tobacco Use Types [...] on file Legal Sex Female 3:29 PM UNDER CUTTING MACHINE OPERATOR Gender Identity Female 06/19/2023 12:12 AM UNDER CUTTING MACHINE OPERATOR Sexual Orientation Straight 06/19/2023 12 :12 AM UNDER CUTTING MACHINE OPERATOR documented as of this encounter Miscellaneous Notes * Telephone Encounter - Tari Owens RN - 07/21/2021 9:34 AM CST Medication warning Per nursing clinical judgement, provider to review and approve the medication(s) order(s) if appropriate. Requested Prescriptions Pending Prescriptions Disp Refills diclofenac (VOLTAREN) 75 MG Tablet Delayed Response [Pharmacy Med Name: Diclofenac Sodium 75 MG Oral Tablet Delayed Release] 180 Tablet 0 Sig: Take 1 tablet by mouth twice daily NSAIDs Protocol Passed - 07/18/2021 2:56 PM Passed - Normal serum creatinine in past 12 months CREATININE, BLOOD Date Value Ref Range Status 04/11/2021 0.63 0.60 - 1.10 mg/dL Final Passed - Visit with relevant provider in past 12 months or upcoming 90 days Recent Visits Date Type Provider Dept 03/28/21 Office Visit Andreas Becker APRN, [facility] 08/28/20 [facility]icine [facility] visits within past 365 days and meeting all other requirements Future Appointments Date Type Provider Dept 07/29/21 Appointment [facility] Show[facility] future appointments within next 90 days and meeting all other requirements Passed - No matching NSAID med order in past 45 days No matching medication orders between 06/06/2021 9:34 AM and 07/21/2021 9:34 AM Passed - AST less than 55 or ALT less than 90 in past 12 months SGOT (AST) Date Value Ref Range Status 04/11/2021 15 <=32 U/L Final SGPT (ALT) Date Value Ref Range Status 04/11/2021 20 <=41 U/L Final Passed - HGB greater than 10 or HCT greater than 30 in past 12 months HEMOGLOBIN (HGB) Date Value Ref Range Status 04/11/2021 11.7 (L) 12.0 - 15.8 g/dL Final HEMATOCRIT (HCT) Date Value Ref Range Status 04/11/2021 37.7 36.0 - 47.0 % Final R CUTTING MACHINE OPERATOR documented in this encounter Plan of Treatment Upcoming Encounters Date Type Department Care Team (Late st Contact Info) Description 08/06/2025 1:30 PM UNDER CUTTING MACHINE OPERATOR Office [facility] - Pulmonology & Sleep Medicine [facility] #[address] [place] [address] Rosendo Krishnamurthy MD #[address] [place] [address] 08/30/2025 1:00 PM UNDER CUTTING MACHINE OPERATOR Office Visit [facility] Family [facility] #2 [place] [address] Peyman Mackey MD #[address] [address] documented as of this encounter Visit Diagnoses Not on filedocumented in this encounter Additional Health Concerns Assessment Noted Time PHQ-9 Depression Total Score: 0 02/14/20 2:00 PM CDT documented as of this encounter Care Teams Varnish Mixer Relationship Specialty Start Date End Date Peyman Mackey MD #[address] [address] PCP - General Family Medicine 11/02/19 Diego Crain MD Consulting Physician Orthopaedic Sports Medicine 03/10/19 Ida Mejia PAC [address] [place] [phone] Nurse Practitioner Orthopaedic Surgery 05/08/19 Herrera Payne MD #[address] [address] Consulting Physician Colon and Rectal Surgery 03/24/24 Rosendo Krishnamurthy MD #[address] [place] [address] Consulting Physician Pulmonary Disease 04/13/25 documented as of this encounter
--- OUTSIDE RECORDS SUMMARY | 2025-07-17 13:09 | XMS_ITS | Encounter Summary ---
Author Organization [facility] Address [address] [place] [address] Phone Care Team Providers Care Movie Writer Name Role Phone Diego Crain MD Unavailable Ida Mejia PAC Unavailable [phone] Peyman Mackey MD Primary Care Provider [phone] Herrera Payne MD Unavailable Rosendo Krishnamurthy MD Unavailable Reason for Visit * Reason Comments Medication Refill Encounter Details Date Type Department Care Team (Late st Contact Info) Description 07/18/2021 [facility]ill [facility] [address] [place] [address] Peyman Mackey MD #[address] [address] Medication Refill Social History Tobacco Use Types [...] on file Legal Sex Female 3:29 PM MUCKING MACHINE OPERATOR Gender Identity Female 06/19/2023 12:12 AM MUCKING MACHINE OPERATOR Sexual Orientation Straight 06/19/2023 12 :12 AM MUCKING MACHINE OPERATOR documented as of this encounter Miscellaneous Notes * Telephone Encounter - Kerline Ashley RN - 07/18/2021 4:01 PM MUCKING MACHINE OPERATOR Medication failed the protocol, provider to review and approve the medication order if appropriate. Requested Prescriptions Pending Prescriptions Disp Refills amLODIPine (NORVASC) 10 MG Tablet [Pharmacy Med Name: amLODIPine Besylate 10 MG Oral Tablet] 90 Tablet 0 Sig: Take 1 tablet by mouth once daily Calcium-Channel Blockers Protocol Passed - 07/18/2021 2:56 PM Passed - BP on record in the past year Clinician-entered: BP Readings from Last 3 Encounters: 03/28/21 128/60 02/13/21 144/84 02/14/20 140/82 Patient-entered: No data recorded Passed - Visit with relevant provider in past 12 months or upcoming 90 days Recent Visits Date Type Provider Dept 03/28/21 Office Visit Andreas Becker APRN, [facility] 08/28/20 Telemedicine [facility] Showing recent visits within past 365 days and meeting all other requirements Future Appointments Date Type Provider Dept 07/29/21 Appointment Peyman Mackey MD [facility] Showing future appointments within next 90 days and meeting all other requirements buPROPion SR (WELLBUTRIN SR) 150 MG TABLET SR 12 HR [Pharmacy Med Name: buPROPion HCl ER (SR) 150 MG Oral Tablet Extended Release 12 Hour] 180 Tablet 0 Sig: Take 1 tablet by mouth twice daily Bupropion (6 Month Refill Only) Protocol Failed - 07/18/2021 2:56 PM Failed - Has an encounter in the past 6 months with a depression or anxiety visit diagnosis Passed - Visit with relevant provider in past 6 months or upcoming 90 days Recent Visits Date Type Provider Dept 03/28/21 Office Visit Andreas Becker APRN, DIRECTOR SECURITY RISK MANAGEMENT [facility] Showing recent visits within past 182 days and meeting all other requirements Future Appointments Date Type Provider Dept 07/29/21 Appointment Peyman Mackey MD [facility] Showing future appointments within next 90 days and meeting all other requirements Passed - Patient has established therapy with Bupropion for at least 6 months ING MACHINE OPERATOR documented in this encounter Plan of Treatment Upcoming Encounters Date Type Department Care Team (Late st Contact Info) Description 08/06/2025 1:30 PM MUCKING MACHINE OPERATOR Office Visit [facility] Medical [facility] - Pulmonology & Sleep Medicine - [place] #2 [place] [address] Rosendo Krishnamurthy MD #2 [place] [address] 08/30/2025 1:00 PM MUCKING MACHINE OPERATOR Office Visit [facility] Medical [facility] - Family Medicine - [place] #2 [place] [address] Peyman Mackey MD #[address] [address] documented as of this encounter Visit Diagnoses Not on filedocumented in this encounter Additional Health Concerns Assessment Noted Time PHQ-9 Depression Total Score: 0 02/14/20 20 2:00 PM CDT documented as of this encounter Care Teams Movie Writer Relationship Specialty Start Date End Date Peyman Mackey MD #[address] [address] PCP - General Family Medicine 11/02/19 Diego Crain MD Consulting Physician Orthopaedic Sports Medicine 03/10/19 Ida Mejia PAC [address] [place] [phone] Nurse Practitioner Orthopaedic Surgery 05/08/19 Herrera Payne MD #[address] [address] Consulting Physician Colon and Rectal Surgery 03/24/24 Rosendo Krishnamurthy MD #[address] [place] [address] Consulting Physician Pulmonary Disease 04/13/25 documented as of this encounter
--- OUTSIDE RECORDS SUMMARY | 2025-07-17 13:09 | XMS_ITS | Encounter Summary ---
Author Organization [facility] Address [address] [place] [address] Phone Care Team Providers Care Fiberglass Container Winding Operator Name Role Phone Diego Crain MD Unavailable [phone] Ida Mejia [facility] Unavailable [phone] Peyman Mackey MD Primary Care Provider [phone] Herrera Payne MD Unavailable Rosendo Krishnamurthy MD Unavailable Reason for Visit * Reason Comments Medication Refill Encounter Details Date Type Department Care Team (Late st Contact Info) Description 10/18/2021 Refill [facility] #[address] [place] [address] Peyman Mackey MD #[address] [address] Medication Refill Social History Tobacco Use Types [...] on file Legal Sex Female 3:29 PM BAR TACKER Gender Identity Female 06/19/2023 12:12 AM BAR TACKER Sexual Orientation Straight 06/19/2023 12 :12 AM BAR TACKER COVID-19 Exposure Response Date Recorded In the last month, have you been in contact with someone who was confirmed or suspected to have Coronavirus / COVID-19? No / Unsure 10/03/2021 6:48 AM BAR TACKER documented as of this encounter Miscellaneous Notes * Telephone Encounter - Tari Owens RN - 10/20/2021 11:02 AM CDT Medication failed the protocol, provider to review and approve the medication order if appropriate. Requested Prescriptions Pending Prescriptions Disp Refills amLODIPine (NORVASC) 10 MG Tablet [Pharmacy Med Name: amLODIPine Besylate 10 MG Oral Tablet] 90 Tablet 1 Sig: Take 1 tablet by mouth once daily Calcium-Channel Blockers Protocol Passed - 10/18/2021 2:19 PM Passed - BP on record in the past year Clinician-entered: BP Readings from Last 3 Encounters: 07/29/21 128/68 03/28/21 128/60 02/13/21 144/84 Patient-entered: No data recorded Passed - Visit with relevant provider in past 12 months or upcoming 90 days Recent Visits Date Type Provider Dept 07/29/21 Office Visit Peyman Mackey MD [facility] 03/28/21 Office Visit Andreas Becker, FLANGING OPERATOR, CREDIT COMPLIANCE OFFICER [facility] Showing recent visits within past 365 days and meeting all other requirements Future Appointments Date Type Provider Dept 10/28/21 Appointment Peyman Mackey MD [facility] Showing future appointments within next 90 days and meeting all other requirements diclofenac (VOLTAREN) 75 MG Tablet Delayed Response [Pharmacy Med Name: Diclofenac Sodium 75 MG Oral Tablet Delayed Release] 180 Tablet 0 Sig: Take 1 tablet by mouth twice daily NSAIDs Protocol Passed - 10/18/2021 2:19 PM Passed - Normal serum creatinine in past 12 months CREATININE - POCT Date Value Ref Range Status 10/03/2021 0.7 0.6 - 1.3 mg/dL Final Passed - Visit with relevant provider in past 12 months or upcoming 90 days Recent Visits Date Type Provider Dept 07/29/21 Office Visit Peyman Mackey MD [facility] 03/28/21 Office Visit Andreas Becker APRN, [facility] Showing recent visits within past 365 days and meeting all other requirements Future Appointments Date Type Provider Dept 10/28/21 Appointment Peyman Mackey MD [facility] Showing future appointments within next 90 days and meeting all other requirements Passed - No matching NSAID med order in past 45 days No matching medication orders between 09/05/2021 11:02 AM and 10/20/2021 11:02 AM Passed - AST less than 55 [...] 09/12/2021 37.1 36.0 - 47.0 % Final buPROPion SR (WELLBUTRIN SR) 150 MG TABLET SR 12 HR [Pharmacy Med Name: buPROPion HCl ER (SR) 150 MG Oral Tablet Extended Release 12 Hour] 180 Tablet 1 Sig: Take 1 tablet by mouth twice daily Bupropion (6 Month Refill Only) Protocol Failed - 10/18/2021 2:19 PM Failed - Has an encounter in the past 6 months with a depression or anxiety visit diagnosis Passed - Visit with relevant provider in past 6 months or upcoming 90 days Recent Visits Date Type Provider Dept 07/29/21 Office Visit Peyman Mackey MD [facility] Showing recent visits within past 182 days and meeting all other requirements Future Appointments Date Type Provider Dept 10/28/21 Appointment Peyman Mackey MD [facility] Showing future appointments within next 90 days and meeting all other requirements Passed - Patient has established therapy with Bupropion for at least 6 months documented in this encounter Plan of Treatment Upcoming Encounters Date Type Department Care Team (Late st Contact Info) Description 08/06/2025 1:30 PM BAR TACKER Office Visit [facility] - Pulmonology & Sleep Medicine [facility] #[address] [place] [address] Rosendo Krishnamurthy MD #2 [place] [address] 08/30/2025 1:00 PM BAR TACKER Office Visit [facility] Family [facility] #2 [place] [address] Peyman Mackey MD #[address] [address] documented as of this encounter Visit Diagnoses Not on filedocumented in this encounter Additional Health Concerns Assessment Noted Time PHQ-9 Depression Total Score: 0 02/14/20 20 2:00 PM CDT documented as of this encounter Care Teams Fiberglass Container Winding Operator Relationship Specialty Start Date End Date Peyman Mackey MD #[address] [address] PCP - General Family Medicine 11/02/19 Diego Crain MD Consulting Physician Orthopaedic Sports Medicine 03/10/19 Ida Mejia PAC [address] [place] [phone] Nurse Practitioner Orthopaedic Surgery 05/08/19 Herrera Payne MD #[address] [address] Consulting Physician Colon and Rectal Surgery 03/24/24 Rosendo Krishnamurthy MD #[address] [place] [address] Consulting Physician Pulmonary Disease 04/13/25 documented as of this encounter
--- OUTSIDE RECORDS SUMMARY | 2025-07-17 13:09 | XMS_ITS | Encounter Summary ---
Author Organization [facility] Address [address] [place] [address] Phone Care Team Providers Care Punch Machine Operator Name Role Phone Diego Crain MD Unavailable [phone] Ida Mejia [facility] Unavailable [phone] Peyman Mackey MD Primary Care Provider [phone] Herrera Payne MD Unavailable Rosendo Krishnamurthy MD Unavailable Reason for Visit * Reason Comments Medication Refill Encounter Details Date Type Department Care Team (Late st Contact Info) Description 04/18/2022 Refill [facility] - [facility] [address] [place] [address] Peyman Mackey MD [address] [address] Medication Refill Social History Tobacco Use Types [...] on file Legal Sex Female 3:29 PM WIRE WHEELER Gender Identity Female 06/19/2023 12:12 AM WIRE WHEELER Sexual Orientation Straight 06/19/2023 12 :12 AM WIRE WHEELER documented as of this encounter Miscellaneous Notes * Telephone Encounter - Tari Owens RN - 04/20/2022 10:08 AM CDT Medication failed the protocol, provider to review and approve the medication order if appropriate. Requested Prescriptions Pending Prescriptions Disp Refills diclofenac (VOLTAREN) 75 MG Tablet Delayed Response [Pharmacy Med Name: Diclofenac Sodium 75 MG Oral Tablet Delayed Release] 180 Tablet 0 Sig: Take 1 tablet by mouth twice daily NSAIDs Protocol Failed - 04/18/2022 7:12 AM Failed - AST less than 55 [...] days Recent Visits Date Type Provider Dept 04/15/22 Telemedicine Peyman Mackey MD [facility] 10/28/21 Office Visit Peyman Mackey MD [facility] 07/29/21 Office Visit Peyman Mackey MD [facility] Showing recent visits within past 365 days and meeting all other requirements Future Appointments Date Type Provider Dept 05/12/22 Appointment Peyman Mackey MD [facility] Showing future appointments within next 90 days and meeting all other requirements Passed - No matching NSAID med order in past 45 days No matching medication orders between 03/06/2022 10:08 AM and 04/20/2022 10:08 AM Passed - HGB greater than 10 or HCT greater than 30 in past 12 months HEMOGLOBIN (HGB) Date Value Ref Range Status 09/12/2021 11.4 (L) 12.0 - 15.8 g/dL Final HEMATOCRIT (HCT) Date Value Ref Range Status 09/12/2021 37.1 36.0 - 47.0 % Final amLODIPine (NORVASC) 10 MG Tablet [Pharmacy Med Name: amLODIPine Besylate 10 MG Oral Tablet] 90 Tablet 3 Sig: Take 1 tablet by mouth once daily Calcium-Channel Blockers Protocol Passed - 04/18/2022 7:12 AM Passed - BP on record in the past year Clinician-entered: BP Readings from Last 3 Encounters: 10/28/21 126/72 07/29/21 128/68 03/28/21 128/60 Patient-entered: No data recorded Passed - Visit with relevant provider in past 12 months or upcoming 90 days Recent Visits Date Type Provider Dept 04/15/22 Telemedicine Peyman Mackey MD [facility] 10/28/21 Office Visit Peyman Mackey MD [facility] 07/29/21 Office Visit Peyman Mackey MD [facility] Showing recent visits within past 365 days and meeting all other requirements Future Appointments Date Type Provider Dept 05/12/22 Appointment Peyman Mackey MD [facility] Showing future appointments within next 90 days and meeting all other requirements ezetimibe (ZETIA) 10 MG Tablet [Pharmacy Med Name: Ezetimibe 10 MG Oral Tablet] 90 Tablet 3 Sig: Take 1 tablet by mouth once daily Intestinal Cholesterol Absorption Inhibitors Protocol Failed - 04/18/2022 7:12 AM Failed - Lipid panel in past [...] days Recent Visits Date Type Provider Dept 04/15/22 Telemedicine Peyman Mackey MD [facility] 10/28/21 Office Visit Peyman Mackey MD [facility] 07/29/21 Office Visit Peyman Mackey MD [facility] Showing recent visits within past 365 days and meeting all other requirements Future Appointments Date Type Provider Dept 05/12/22 Appointment Peyman Mackey MD [facility] Showing future appointments within next 90 days and meeting all other requirements buPROPion SR (WELLBUTRIN SR) 150 MG TABLET SR 12 HR [Pharmacy Med Name: buPROPion HCl ER (SR) 150 MG Oral Tablet Extended Release 12 Hour] 180 Tablet 1 Sig: Take 1 tablet by mouth twice daily Bupropion (6 Month Refill Only) Protocol Passed - 04/18/2022 7:12 AM Passed - Visit with relevant provider in past 6 months or upcoming 90 days Recent Visits Date Type Provider Dept 04/15/22 Telemedicine Peyman Mackey MD [facility] 10/28/21 Office Visit Peyman Mackey MD [facility] Showing recent visits within past 182 days and meeting all other requirements Future Appointments Date Type Provider Dept 05/12/22 Appointment Peyman Mackey MD [facility] Showing [...] st Contact Info) Description 08/06/2025 1:30 PM WIRE WHEELER Office Visit [facility] - [address] [place] [address] Rosendo Krishnamurthy MD [address] [place] [address] 08/30/2025 1:00 PM WIRE WHEELER Office Visit [facility] - Family [facility] [address] [place] [address] Peyman Mackey MD [address] [address] documented as of this encounter Visit Diagnoses Not on filedocumented in this encounter Additional Health Concerns Assessment Noted Time PHQ-9 Depression Total Score: 0 02/14/20 20 2:00 PM CDT documented as of this encounter Care Teams Punch Machine Operator Relationship Specialty Start Date End Date Peyman Mackey MD [address] [address] PCP - General Family Medicine 11/02/19 Diego Crain MD Consulting Physician Orthopaedic Sports Medicine 03/10/19 Ida Mejia PAC [address] [place] [id number] Nurse Practitioner Orthopaedic Surgery 05/08/19 Herrera Payne MD [address] [address] Consulting Physician Colon and Rectal Surgery 03/24/24 Rosendo Krishnamurthy MD [address] [place] [address] Consulting Physician Pulmonary Disease 04/13/25 documented as of this encounter
== END 2025-07-17 11:24 | disposition home or self-care (01) ==
PROVIDERS: Emergency Provider Registered Nurse; PCP Family Medicine
DX: K04.7 Periapical abscess without sinus (principal); I10 Essential (primary) hypertension; J44.9 Chronic obstructive pulmonary disease, unspecified; F41.9 Anxiety disorder, unspecified; F32.A Depression, unspecified; Z96.642 Presence of left artificial hip joint; Z87.891 Personal history of nicotine dependence
CPT/HCPCS: 99213; G0463